=== PATIENT | male | born 1930 | race Caucasian/White ===

== ENCOUNTER → 2016-04-26 | Outpatient (REF) | payer MEDICARE, MEDICAID ==
[~2016-04-26] MED LIST: /TAMS4CA OR; ACET65TA OR; ALBU83IN IN; ARTI99.0 OU; ASPI325T OR; ASPI325T PO; Albuterol/Ipratropium NEB; BACL10TA2 OR; BACL10TA2 PO; CEFD300CAP PO; CETI10TA OR; CIPR500T4 OR; CLAR500T OR; Cipro PO; DULC5TAB PO; Dulcolax PO; ENSU-12 PO; FAMO1TAB11 PO; FLOM5CAP PO; GABA-283 PO; GABA300C3 PO; GABA600T PO; HYDR1TAB97 PO; IPRASOL4 NEB; LEVA750T PO; LEVO100T5 PO; MEGE20TA PO; MILKSUS PO; MIRA33504 PO; MYLASUS2 PO; Milk of Magnesia PO; NEUR300C OR; NEUR600T OR; NORC5TAB PO; OMEP10CASR PO; PATA2.5S OU; PATANOL OPTHALMIC OU; POTA10CA PO; PRIL20CA OR; RANI150C OR; REME15TA PO; REME30TA OR; SENO8.6T10 PO; SYNT100T OR; SYNT88TA2 PO; Senokot S PO; TAMS0.4C2 PO; TYLE325T5 PO; Tylenol PO; VENTOLIN NEB NEB; VITMTA PO; ZOCO10TA PO; ZYPR2.5T OR; ZYRT10TA2 PO; Zocor PO; [UNRECOGNIZED DRUG - OTHER] OU
== END ==
LOC: SKLAB4 09:00
PROVIDERS: ATTEND Family Medicine
DX: E03.9 Hypothyroidism, unspecified (principal)

== ENCOUNTER → 2016-05-17 | Outpatient (REF) | payer MEDICARE, MEDICAID ==
[~2016-05-17] MED LIST changes: +HYDR-3713 PO; -HYDR1TAB97 PO
[2016-05-17 09:36] LABS: CALCIUM LEVEL 8.3 MG/DL (8.8-10.2); CREATININE FOR GFR 1.25 MG/DL (0.70-1.30); GLOMERULAR FILTRATION RATE 58.7 (>35); POTASSIUM SERUM 4.1 MEQ/L (3.5-5.1)
== END ==
LOC: SKLAB4 09:58
PROVIDERS: ATTEND Family Medicine
DX: N18.9 Chronic kidney disease, unspecified (principal)

== ENCOUNTER → 2016-06-02 | Outpatient (REF) | payer MEDICARE, MEDICAID | LOC: SKLAB4 07:00 | PROVIDERS: ATTEND Family Medicine | DX: E03.9 Hypothyroidism, unspecified (principal); N48.1 Balanitis; Z12.5 Encounter for screening for malignant neoplasm of prostate; Z85.46 Personal history of malignant neoplasm of prostate; Z08 Encounter for follow-up examination after completed treatment for malignant neoplasm | CPT/HCPCS: 36415; 87252; G0103 ==

== ENCOUNTER → 2016-06-14 | Outpatient (REF) | payer MEDICARE, MEDICAID, OTHER ==
[2016-06-14 09:51] LABS: BASO % 0.3 % (0.0-1.0); EOS # 0.7 K/mm3 (0.0-0.50); EOS % 12.1 % (0.0-3.0); LARGE UNSTAINED CELL # 0.1 K/mm3 (0.0-0.4); LARGE UNSTAINED CELL % 1.3 % (0.0-4.0); LYMPH # 1.2 K/mm3 (1.5-4.5); MEAN CORPUSCULAR HGB CONC 33.8 g/dl (32.0-36.5); MEAN CORPUSCULAR VOLUME 97.7 fl (80.0-96.0); MONO # 0.3 K/mm3 (0.0-0.8); MONO % 5.7 % (0.0-5.0); NEUTROPHILS # 3.6 K/mm3 (1.8-7.7); NEUTROPHILS % 60.6 % (36.0-66.0); PLATELET COUNT, AUTOMATED 179 k/mm3 (150-450); RED CELL DISTRIBUTION WIDTH 13.8 % (11.5-14.5); WHITE BLOOD COUNT 5.9 K/mm3 (4.0-10.0)
[2016-06-14 10:02] LABS: CALCIUM LEVEL 8.8 MG/DL (8.8-10.2); CREATININE FOR GFR 1.29 MG/DL (0.70-1.30); GLOMERULAR FILTRATION RATE 56.6 (>35); POTASSIUM SERUM 3.7 MEQ/L (3.5-5.1)
== END ==
LOC: SKLAB4 09:14
PROVIDERS: ATTEND Family Medicine
DX: E03.9 Hypothyroidism, unspecified (principal); I10 Essential (primary) hypertension; D64.9 Anemia, unspecified

== ENCOUNTER → 2016-07-07 | Outpatient (REF) | payer MEDICARE, MEDICAID, OTHER | LOC: SKLAB4 21:43 | PROVIDERS: ATTEND Family Medicine | DX: R09.3 Abnormal sputum (principal) ==

== ENCOUNTER → 2016-07-12 | Outpatient (REF) | payer MEDICARE, MEDICAID, OTHER ==
[2016-07-12 08:49] LABS: ANION GAP 9 MEQ/L (8-16); BLOOD UREA NITROGEN 26 MG/DL (7-18); CALCIUM LEVEL 8.5 MG/DL (8.8-10.2); CARBON DIOXIDE LEVEL 24 MEQ/L (21-32); CHLORIDE LEVEL 109 MEQ/L (98-107); CREATININE FOR GFR 1.11 MG/DL (0.70-1.30); GLOMERULAR FILTRATION RATE > 60.0 (>35); GLUCOSE, FASTING 87 MG/DL (83-110); POTASSIUM SERUM 3.7 MEQ/L (3.5-5.1); SODIUM LEVEL 142 MEQ/L (136-145)
== END ==
LOC: SKLAB4 09:42
PROVIDERS: ATTEND Family Medicine
DX: I10 Essential (primary) hypertension (principal)

== ENCOUNTER → 2016-08-09 | Outpatient (REF) | payer MEDICARE, MEDICAID, OTHER ==
[~2016-08-09] MED LIST changes: +GABA-282 PO; -GABA300C3 PO; +MYLASUS16 PO; -MYLASUS2 PO; +NORC1TAB4 PO; -NORC5TAB PO
[2016-08-09 09:16] LABS: ANION GAP 10 MEQ/L (8-16); BLOOD UREA NITROGEN 26 MG/DL (7-18); CALCIUM LEVEL 8.8 MG/DL (8.8-10.2); CARBON DIOXIDE LEVEL 23 MEQ/L (21-32); CHLORIDE LEVEL 111 MEQ/L (98-107); CREATININE FOR GFR 1.12 MG/DL (0.70-1.30); GLOMERULAR FILTRATION RATE > 60.0 (>35); GLUCOSE, FASTING 126 MG/DL (83-110); POTASSIUM SERUM 3.7 MEQ/L (3.5-5.1); SODIUM LEVEL 144 MEQ/L (136-145)
== END ==
LOC: SKLAB4 10:25
PROVIDERS: ATTEND Family Medicine
DX: I10 Essential (primary) hypertension (principal)

== ENCOUNTER → 2016-09-06 | Outpatient (REF) | payer MEDICARE, MEDICAID, OTHER ==
[2016-09-06 08:51] LABS: ANION GAP 9 MEQ/L (8-16); BLOOD UREA NITROGEN 27 MG/DL (7-18); CALCIUM LEVEL 8.4 MG/DL (8.8-10.2); CARBON DIOXIDE LEVEL 24 MEQ/L (21-32); CHLORIDE LEVEL 108 MEQ/L (98-107); CREATININE FOR GFR 1.08 MG/DL (0.70-1.30); GLOMERULAR FILTRATION RATE > 60.0 (>35); GLUCOSE, FASTING 89 MG/DL (83-110); POTASSIUM SERUM 3.9 MEQ/L (3.5-5.1); SODIUM LEVEL 141 MEQ/L (136-145)
== END ==
LOC: SKLAB4 11:32
PROVIDERS: ATTEND Family Medicine
DX: Z86.73 Personal history of transient ischemic attack (TIA), and cerebral infarction without residual deficits (principal); Z87.01 Personal history of pneumonia (recurrent); E03.9 Hypothyroidism, unspecified; E78.5 Hyperlipidemia, unspecified; I10 Essential (primary) hypertension; J44.9 Chronic obstructive pulmonary disease, unspecified; K21.9 Gastro-esophageal reflux disease without esophagitis

== ENCOUNTER → 2016-09-15 | Outpatient (REF) | payer MEDICARE, MEDICAID, OTHER | LOC: SKLAB4 11:22 | PROVIDERS: ATTEND Family Medicine | DX: Z86.14 Personal history of Methicillin resistant Staphylococcus aureus infection (principal) ==

== ENCOUNTER → 2016-09-18 | Outpatient (REF) | payer MEDICARE, MEDICAID | LOC: M LAB REF 15:09 → SKLAB4 15:09 | PROVIDERS: ATTEND Family Medicine | DX: L08.9 Local infection of the skin and subcutaneous tissue, unspecified (principal) ==

== ENCOUNTER → 2016-09-20 | Outpatient (REF) | payer MEDICARE, MEDICAID | LOC: SKLAB4 15:34 | PROVIDERS: ATTEND Family Medicine | DX: Z22.322 Carrier or suspected carrier of Methicillin resistant Staphylococcus aureus (principal) ==

== ENCOUNTER → 2016-09-22 | Outpatient (REF) | payer MEDICARE, MEDICAID | LOC: SKLAB4 09:15 | PROVIDERS: ATTEND Family Medicine | DX: Z22.322 Carrier or suspected carrier of Methicillin resistant Staphylococcus aureus (principal) ==

== ENCOUNTER → 2016-10-01 | Outpatient (REF) | payer MEDICARE, MEDICAID ==
[2016-10-01 05:02] LABS: CALCIUM OXALATE CRYSTALS SMALL
== END ==
LOC: SKLAB4 03:42
PROVIDERS: ATTEND Family Medicine
DX: R30.0 Dysuria (principal)

== ENCOUNTER → 2016-10-11 | Outpatient (REF) | payer MEDICARE, MEDICAID ==
[2016-10-11 10:30] LABS: CREATININE FOR GFR 1.32 MG/DL (0.70-1.30); POTASSIUM SERUM 3.4 MEQ/L (3.5-5.1)
== END ==
LOC: SKLAB4 09:49
PROVIDERS: ATTEND Family Medicine
DX: I69.959 Hemiplegia and hemiparesis following unspecified cerebrovascular disease affecting unspecified side (principal); Z87.01 Personal history of pneumonia (recurrent)

== ENCOUNTER → 2016-11-07 | Outpatient (REF) | payer MEDICARE, MEDICAID ==
[~2016-11-07] MED LIST changes: +ASPI81TAEC PO; +CALC500T19 PO; +DICY1CAP8 PO; +DULO1CAP3 PO; +ENEM1ENE4 PR; +FEVE650S3 PR; +HYDR-3363 PO; +IPRASOL4 INH; +KLOR1CAP2 PO; +LACT10SO3 PO; -LEVA750T PO; +LEVA750T7 PO; +LEVO100T54 PO; -MEGE20TA PO; +MEGE20TA3 PO; +MINO100T PO; +OXYC-517 PO; +PEG1POW PO; +POTA20PW PO; +PRED20TA PO; +PRED5TA PO; +REFR0.5D8 OU
== END ==
LOC: SKLAB4 14:24
PROVIDERS: ATTEND Family Medicine
DX: S71.101A Unspecified open wound, right thigh, initial encounter (principal); X58.XXXA Exposure to other specified factors, initial encounter; Y92.89 Other specified places as the place of occurrence of the external cause; Y93.89 Activity, other specified; Y99.8 Other external cause status

== ENCOUNTER → 2016-11-08 | Outpatient (REF) | payer MEDICARE, MEDICAID ==
[2016-11-08 08:45] LABS: CALCIUM LEVEL 8.3 MG/DL (8.8-10.2); CREATININE FOR GFR 1.26 MG/DL (0.70-1.30); POTASSIUM SERUM 3.8 MEQ/L (3.5-5.1)
== END ==
LOC: SKLAB4 09:48
PROVIDERS: ATTEND Family Medicine
DX: I10 Essential (primary) hypertension (principal)

== ENCOUNTER → 2016-11-09 | Outpatient (REF) | payer MEDICARE, MEDICAID | LOC: SKLAB4 09:55 | PROVIDERS: ATTEND Family Medicine | DX: B86 Scabies (principal) ==

== ENCOUNTER → 2016-11-22 | Outpatient (REF) | payer MEDICARE, MEDICAID | LOC: SKLAB4 11:56 | PROVIDERS: ATTEND Family Medicine | DX: Z85.46 Personal history of malignant neoplasm of prostate (principal) ==

== ENCOUNTER → 2016-12-13 | Outpatient (REF) | payer MEDICARE, MEDICAID ==
[2016-12-13 09:01] LABS: BASO % 0.3 % (0.0-1.0); EOS # 0.2 K/mm3 (0.0-0.50); EOS % 2.7 % (0.0-3.0); LARGE UNSTAINED CELL # 0.1 K/mm3 (0.0-0.4); LARGE UNSTAINED CELL % 1.6 % (0.0-4.0); LYMPH # 1.1 K/mm3 (1.5-4.5); LYMPH % 13.1 % (24.0-44.0); MEAN CORPUSCULAR HEMOGLOBIN 29.6 pg (27.0-33.0); MEAN CORPUSCULAR HGB CONC 32.4 g/dl (32.0-36.5); MEAN CORPUSCULAR VOLUME 91.5 fl (80.0-96.0); MONO # 0.4 K/mm3 (0.0-0.8); MONO % 4.8 % (0.0-5.0); NEUTROPHILS # 6.6 K/mm3 (1.8-7.7); NEUTROPHILS % 77.5 % (36.0-66.0); PLATELET COUNT, AUTOMATED 255 k/mm3 (150-450); RED CELL DISTRIBUTION WIDTH 14.4 % (11.5-14.5); WHITE BLOOD COUNT 8.5 K/mm3 (4.0-10.0)
[2016-12-13 09:35] LABS: ANION GAP 11 MEQ/L (8-16); BLOOD UREA NITROGEN 35 MG/DL (7-18); CALCIUM LEVEL 8.2 MG/DL (8.8-10.2); CARBON DIOXIDE LEVEL 25 MEQ/L (21-32); CHLORIDE LEVEL 104 MEQ/L (98-107); CREATININE FOR GFR 1.08 MG/DL (0.70-1.30); GLOMERULAR FILTRATION RATE > 60.0 (>35); GLUCOSE, FASTING 74 MG/DL (83-110); SODIUM LEVEL 140 MEQ/L (136-145)
== END ==
LOC: SKLAB4 09:40
PROVIDERS: ATTEND Family Medicine
DX: J44.9 Chronic obstructive pulmonary disease, unspecified (principal); E78.5 Hyperlipidemia, unspecified; E03.9 Hypothyroidism, unspecified; Z85.46 Personal history of malignant neoplasm of prostate; R97.21 Rising PSA following treatment for malignant neoplasm of prostate

== ENCOUNTER 2016-12-26 03:17 | Inpatient (IN) | payer MEDICARE, MEDICAID ==
[~2016-12-26] VITALS: Ht 167.6 cm; Wt 90.0 kg
[~2016-12-26 03:17] MED LIST changes: -ASPI81TAEC PO; -CALC500T19 PO; -DICY1CAP8 PO; -DULO1CAP3 PO; -ENEM1ENE4 PR; -FEVE650S3 PR; -HYDR-3363 PO; -IPRASOL4 INH; -KLOR1CAP2 PO; -LACT10SO3 PO; -LEVO100T54 PO; -MINO100T PO; -OXYC-517 PO; -PEG1POW PO; -POTA20PW PO; -PRED20TA PO; -PRED5TA PO; -REFR0.5D8 OU
[2016-12-26 04:59] LABS: BASO % 0.3 % (0.0-1.0); EOS # 0.1 K/mm3 (0.0-0.50); EOS % 0.7 % (0.0-3.0); LARGE UNSTAINED CELL # 0.1 K/mm3 (0.0-0.4); LARGE UNSTAINED CELL % 0.7 % (0.0-4.0); LYMPH # 1.1 K/mm3 (1.5-4.5); MEAN CORPUSCULAR HGB CONC 33.4 g/dl (32.0-36.5); MEAN CORPUSCULAR VOLUME 89.9 fl (80.0-96.0); MONO # 0.7 K/mm3 (0.0-0.8); MONO % 6.6 % (0.0-5.0); NEUTROPHILS # 8.4 K/mm3 (1.8-7.7); NEUTROPHILS % 81.7 % (36.0-66.0); PLATELET COUNT, AUTOMATED 232 k/mm3 (150-450); RED CELL DISTRIBUTION WIDTH 15.3 % (11.5-14.5); WHITE BLOOD COUNT 10.3 K/mm3 (4.0-10.0)
[2016-12-26 06:23] LABS: ALBUMIN 1.6 GM/DL (3.2-5.2); ALBUMIN/GLOBULIN RATIO 0.64 (1.00-1.93); ALKALINE PHOSPHATASE 55 U/L (45-117); ALT/SGPT 18 U/L (12-78); ANION GAP 12 MEQ/L (8-16); AST/SGOT 19 U/L (15-37); BILIRUBIN,DIRECT < 0.1 MG/DL (0.0-0.2); BILIRUBIN,TOTAL 0.3 MG/DL (0.2-1.0); BLOOD UREA NITROGEN 35 MG/DL (7-18); CALCIUM LEVEL 5.8 MG/DL (8.8-10.2); CARBON DIOXIDE LEVEL 15 MEQ/L (21-32); CHLORIDE LEVEL 124 MEQ/L (98-107); CREATININE FOR GFR 0.61 MG/DL (0.70-1.30); GLOMERULAR FILTRATION RATE > 60.0 (>35); GLUCOSE, FASTING 86 MG/DL (83-110); POTASSIUM SERUM 3.4 MEQ/L (3.5-5.1); SODIUM LEVEL 151 MEQ/L (136-145); TOTAL PROTEIN 4.1 GM/DL (6.4-8.2)
[2016-12-26] MEDS ORDERED: ONDANSETRON 4MG/2ML VIAL (J2405) IV ONE (06:30)
[2016-12-26] MEDS ORDERED: NS 1,000 ML IV ONE (06:30)
[2016-12-26] MEDS ORDERED: ISOVUE-370 76% 100ML VIAL (Q9967) As Ordered ONE (06:33)
--- NOTE | 2016-12-26 07:30 | REPUSA ---
CLINICAL HISTORY: Abdominal pain. TECHNIQUE: Multiple axial, sagittal and coronal CT images were obtained through the abdomen and pelvi s after administration of intravenous contrast material. COMMENTS: Moderate fecal impaction of the rectosigmoid colon. Moderate gaseous distention of the colon which contains large amount of fecal residue. The largest anteroposterior dimension of the distended sigmoid colon is 15.3 cm. No associated bowel perforation or pneumatosis coli. No evidence of abscess formation. Small amount of perihepatic free fluid. Interposition of the colon between the liver and the right hemidiaphragm. Secondary extrinsic compression of the distal right ureter from a distended sigmoid containing massiv e amount of fecal residue. Subsequent moderate right hydroureteronephrosis. Moderate chronic left renal atrophy with nonobstructing nephrolithiasis. Prior prostatectomy. Fatty liver infiltration. Cholelithiasis with a distended gallbladder. Incidental left lower lobe segmental branches pulmonary emboli. Cardiomegaly. Bilateral basilar atelectatic pulmonary changes. There is no intra or extrahepatic biliary ductal dilatation. The spleen is normal. The pancreas is of normal contour and attenuation characteristics. There is no evidence of adrenal mass. No evidence for appendicitis. There is no evidence of intrinsic or extrinsic bladder mass. The bony structures are free of lytic or blastic lesions. Multilevel degenerative changes are seen in volving the thoracolumbar spine. Scattered calcifications are seen involving the aorta and major branches compatible with atherosclero sis. IMPRESSION: Comparison to the prior exam on 04/10/2014. Moderate fecal impaction of the rectosigmoid colon. This was not present on prior exam. Moderate gaseous distention of the colon which contains large amount of fecal residue. This was not p resent on prior exam. The largest anteroposterior dimension of the distended sigmoid colon is 15.3 cm. this was not present on the prior exam. No associated bowel perforation or pneumatosis coli. No evidence of abscess formation. Small amount of perihepatic free fluid. This was not present on prior exam. Interposition of the colon between the liver and the right hemidiaphragm. Secondary extrinsic compression of the distal right ureter from a distended sigmoid containing massiv e amount of fecal residue. Subsequent moderate right hydroureteronephrosis. Moderate chronic left renal atrophy with nonobstructing nephrolithiasis. Prior prostatectomy. Fatty liver infiltration. This is unchanged. Cholelithiasis with a distended gallbladder. This is unchanged. Incidental left lower lobe segmental branches pulmonary emboli. Prior exam was performed without intr avenous contrast. Cardiomegaly. This is unchanged. Bilateral basilar atelectatic pulmonary changes. This has increased. Thank you for your kind referral of this patient.
[2016-12-26] MEDS ORDERED: NS 1,000 ML IV SCH (07:45)
[2016-12-26 08:11] LABS: IONIZED CALCIUM 4.8 MG/DL (4.5-5.3)
[2016-12-26 08:30] LABS: MAGNESIUM LEVEL 2.7 MG/DL (1.8-2.4); PHOSPHORUS LEVEL 3.2 MG/DL (2.5-4.9)
--- NOTE | 2016-12-26 08:44 | REP ---
Clinical: Left lower extremity pain and swelling . Technique: Estrada scale and color Doppler evaluation using linear high frequency transducer. Findings: Subcutaneous edema is appreciated primarily in the posterior knee. Ultrasound examination of the left lower extremity deep venous structures from the common femoral vein to the popliteal vein demonstrates normal compressibility flow and wave patterns in response to respiration and augmentation. There is no evidence for deep venous thrombosis. Impression: No evidence for deep venous thrombosis. Signed by Daron Aranda MD 12/26/2016 08:35 A
[2016-12-26] MEDS: DULoxetine 30 MG CAP (CYMBALTA) PO SCH ×2 (09:00→14:20)
[2016-12-26] MEDS: BACLOFEN 10 MG TAB PO SCH ×4 (09:00→22:23)
[2016-12-26] MEDS: MULTIVITAMINS/MINERALS THERAP 1 TAB PO SCH ×2 (09:00→14:22)
[2016-12-26] MEDS: MIRALAX *UNIT DOSE* 17GM PACKET PO SCH ×2 (09:00→14:22)
[2016-12-26] MEDS ORDERED: CALC500T19 PO (09:58)
[2016-12-26] MEDS ORDERED: PRED5TA PO (09:58)
[2016-12-26] MEDS ORDERED: PRED20TA PO (09:58)
[2016-12-26] MEDS ORDERED: BISACODYL 10 MG SUPP PR PRN (10:15)
[2016-12-26] MEDS ORDERED: FLEET ENEMA PR PRN (10:15)
[2016-12-26] MEDS ORDERED: IPRATROPIUM 0.5MG/ALBUTEROL 2.5MG INH SOL UD 3ML (DUONEB)(J7620) INH PRN (10:15)
[2016-12-26] MEDS ORDERED: FEVE650S3 PR (10:18)
[2016-12-26] MEDS ORDERED: REFR0.5D8 OU (10:18)
[2016-12-26] MEDS ORDERED: ASPI81TAEC PO (10:18)
[2016-12-26] MEDS ORDERED: LEVO100T54 PO (10:18)
[2016-12-26] MEDS ORDERED: FLOM5CAP PO (10:18)
[2016-12-26] MEDS ORDERED: TYLE325T5 PO (10:18)
[2016-12-26] MEDS ORDERED: MINO100T PO (10:18)
[2016-12-26] MEDS ORDERED: OXYC-517 PO (10:18)
[2016-12-26] MEDS ORDERED: ENEM1ENE4 PR (10:18)
[2016-12-26] MEDS ORDERED: HYDR-3363 PO (10:18)
[2016-12-26] MEDS ORDERED: DULO1CAP3 PO (10:18)
[2016-12-26] MEDS ORDERED: KLOR1CAP2 PO (10:18)
[2016-12-26] MEDS ORDERED: MILKSUS PO (10:18)
[2016-12-26] MEDS ORDERED: IPRASOL4 INH (10:18)
[2016-12-26] MEDS: NS 1,000 ML IV SCH ×2 (11:00→14:09)
[2016-12-26 11:46] VITALS: BP 134/75
[2016-12-26] MEDS ORDERED: MAGNESIUM CITRATE 300 ML BTL PO ONE (12:00)
[2016-12-26 14:00] VITALS: BP 169/95
[2016-12-26] MEDS: hydrOXYzine 25 MG TAB PO SCH ×4 (14:00→22:23)
[2016-12-26] MEDS: oxyCODONE 5MG TAB PO PRN ×3 (14:07→15:26)
[2016-12-26] MEDS: ACETAMINOPHEN TAB 650MG DOSE (2X325MG) PO PRN ×4 (14:08→22:22)
[2016-12-26] MEDS: predniSONE 5 MG TAB PO SCH ×2 (14:21→15:28)
[2016-12-26] MEDS: APIXABAN 5 MG TAB (ELIQUIS) PO SCH ×3 (14:21→22:21)
--- NOTE | 2016-12-26 19:50 | ECGEPIP ---
Stationary ECG Study [facility] - ED Test Date: 2016-12-26 Pat Name: CHASE HAWLEY Department: Room: - Gender: M Vp Analysis: pushpa : [id number] Requested By: ARMIDA VERDIN PA-C. Order Number: [id number] Reading MD: Kermit Ribera Measurements Intervals [place]de Rate: 96 P: 44 AL: 138 QRS: 78 QRSD: 133 T: 0 QT: 376 QTc: 476 Interpretive Statements SINUS RHYTHM RIGHT BUNDLE BRANCH BLOCK RIGHTWARD AXIS CW 08/22/15 - NEW RBBB RATE INCREASED Electronically Signed On 12-26-2016 19:49:48 EDT by Kermit Ribera
[2016-12-26] MEDS ORDERED: MIRTAZAPINE 15 MG TAB PO SCH (21:00)
[2016-12-26 22:00] VITALS: BP 167/95
[2016-12-26] MEDS: POTASSIUM CHLORIDE 10% LIQ 20 MEQ/15 ML UDC PO SCH (22:20)
[2016-12-26] MEDS: ASPIRIN 81 MG ENTERIC TAB PO SCH (22:22)
[2016-12-26] MEDS: SENOKOT S TAB PO SCH (22:22)
[2016-12-26] MEDS: LEVOTHYROXINE 100MCG TABLET (0.1MG) PO SCH (22:22)
[2016-12-26] MEDS: TAMSULOSIN 0.4 MG CAP PO SCH (22:22)
[2016-12-26] MEDS: FAMOTIDINE 20 MG TAB PO SCH (22:23)
[2016-12-26] MEDS: MINOCYCLINE 50 MG CAP PO SCH (22:23)
[2016-12-27] MEDS: ONDANSETRON 4MG/2ML VIAL (J2405) IV PRN (03:21)
[2016-12-27 06:00] VITALS: BP 158/86
[2016-12-27] MEDS: hydrOXYzine 25 MG TAB PO SCH ×3 (06:35→22:03)
[2016-12-27 07:11] LABS: BASO % 0.1 % (0.0-1.0); EOS % 0.1 % (0.0-3.0); LARGE UNSTAINED CELL # 0.1 K/mm3 (0.0-0.4); LARGE UNSTAINED CELL % 0.9 % (0.0-4.0); LYMPH # 0.8 K/mm3 (1.5-4.5); LYMPH % 7.9 % (24.0-44.0); MEAN CORPUSCULAR HEMOGLOBIN 29.7 pg (27.0-33.0); MEAN CORPUSCULAR HGB CONC 32.8 g/dl (32.0-36.5); MEAN CORPUSCULAR VOLUME 90.6 fl (80.0-96.0); MONO # 0.4 K/mm3 (0.0-0.8); MONO % 4.6 % (0.0-5.0); NEUTROPHILS # 7.3 K/mm3 (1.8-7.7); NEUTROPHILS % 86.3 % (36.0-66.0); PLATELET COUNT, AUTOMATED 274 k/mm3 (150-450); RED CELL DISTRIBUTION WIDTH 15.4 % (11.5-14.5); WHITE BLOOD COUNT 8.5 K/mm3 (4.0-10.0)
[2016-12-27 07:14] LABS: ALBUMIN 2.4 GM/DL (3.2-5.2); ALBUMIN/GLOBULIN RATIO 0.53 (1.00-1.93); ALKALINE PHOSPHATASE 90 U/L (45-117); ALT/SGPT 25 U/L (12-78); ANION GAP 11 MEQ/L (8-16); AST/SGOT 11 U/L (15-37); BILIRUBIN,TOTAL 0.6 MG/DL (0.2-1.0); BLOOD UREA NITROGEN 42 MG/DL (7-18); CALCIUM LEVEL 8.8 MG/DL (8.8-10.2); CARBON DIOXIDE LEVEL 22 MEQ/L (21-32); CHLORIDE LEVEL 112 MEQ/L (98-107); CREATININE FOR GFR 1.04 MG/DL (0.70-1.30); GLUCOSE, FASTING 119 MG/DL (83-110); MAGNESIUM LEVEL 2.8 MG/DL (1.8-2.4); SODIUM LEVEL 145 MEQ/L (136-145); TOTAL PROTEIN 6.9 GM/DL (6.4-8.2)
[2016-12-27 07:15] LABS: GLOMERULAR FILTRATION RATE > 60.0 (>35)
[2016-12-27] MEDS: MIRALAX *UNIT DOSE* 17GM PACKET PO SCH (09:00)
[2016-12-27] MEDS ORDERED: predniSONE 20 MG TAB PO SCH (09:00)
[2016-12-27] MEDS: PROMETHAZINE INJ 25 MG/ML VIAL (J2550) IV PRN (10:38)
--- NOTE | 2016-12-27 10:45 | IPNPDOC ---
Subjective Date Seen The patient was seen on 12/27/16. Subjective Chief Complaint/HPI The patient is a 86-year-old male admitted with a reason for visit of Pulmonary Embolism Fecal Impaction. General: Reports: ROS Unobtainable Objective Physical Examination General Exam: Positive: Moderate Distress Neck Exam: Positive: Supple Chest Exam: Positive: Clear to auscultation, Normal air movement, Negative: Rales, Rhonchi Heart Exam: Positive: Regular Rhythm Abdomen Exam: Positive: BS Hypoactive, Other (Distended, tender especially LLQ. No rebound but tympanitic) Skin Exam: Positive: Other skin issue (healing wounds multiple locations. no bullae seen today. 2+ edema bilaterally.) Neuro Exam: Positive: Other (confused, no fully able to follow directions. moves right side) Assessment /Plan Problems (1) Fecal impaction Status: Acute Response to Treatment: Worse Problem Specific Plan: Consult Specialist Problem Text: distended, tender, emesis this am. likely needs NG. KUB shows still has large amount of rectal stool and distended colon. (2) Pulmonary embolism Status: Acute Response to Treatment: Stable Problem Text: PO Eliquis stopped due to emesis. Will need Lovenox or IV heparin to manage but at this point will hold on these until surgical consult. (3) Bullous pemphigoid Status: Chronic Response to Treatment: Stable Problem Text: has seen Derm [employer] SOFTWARE [employer]INE[employer]. No blisters seen today. This skin condition can be an acquired side effect from mirtazapine. Currently NPO will need IV steroids until able to be taking po again. (4) H/O: CVA (cerebrovascular accident) Status: Chronic Response to Treatment: Stable Problem Text: affected left side Plan/VTE VTE Prophylaxis Ordered?: Yes VS, I&O, 24H, Fishbone Vital Signs/I&O Vital Signs Date Time Temp Pulse Resp B/P (MAP) Pulse Ox O2 Delivery O2 Flow Rate FiO2 12/27/16 06:00 97.9 93 20 158/86 (110) 92 Room Air I&O- Last 24 Hours up to 6 AM 12/27/16 05:59 Intake Total 1125 ml Output Total 50 ml Balance 1075 ml Laboratory Data 24H LABS Laboratory Tests 2 12/27/16 06:34: White Blood Count 8.5, Red Blood Count 4.71, Hemoglobin 14.0, Hematocrit 42.6, Mean Corpuscular Volume 90.6, Mean Corpuscular Hemoglobin 29.7, Mean Corpuscular Hemoglobin Concent 32.8, Red Cell Distribution Width 15.4H, Platelet Count 274, Neutrophils (%) (Auto) 86.3H, Lymphocytes (%) (Auto) 7.9L, Monocytes (%) (Auto) 4.6, Eosinophils (%) (Auto) 0.1, Basophils (%) (Auto) 0.1, Neutrophils # (Auto) 7.3, Lymphocytes # (Auto) 0.8L, Monocytes # (Auto) 0.4, Eosinophils # (Auto) 0.0, Basophils # (Auto) 0.0, Large Unclassified Cells % 0.9 , Large Unclassified Cells # 0.1, Anion Gap 11, Glomerular Filtration Rate > 60.0, Blood Urea Nitrogen 42H, Creatinine 1.04#, Sodium Level 145, Potassium Level 4.0, Chloride Level 112H, Carbon Dioxide Level 22, Calcium Level 8.8#, Aspartate Amino Transf (AST/SGOT) 11L, Alanine Aminotransferase (ALT/SGPT) 25, Alkaline Phosphatase 90, Total Bilirubin 0.6#, Total Protein 6.9#, Albumin 2.4#L , Magnesium Level 2.8H, Albumin/Globulin Ratio 0.53L CBC/BMP Laboratory Tests 12/27/16 06:34 Red Blood Count 4.71, Mean Corpuscular Volume 90.6, Mean Corpuscular Hemoglobin 29.7, Mean Corpuscular Hemoglobin Concent 32.8, Red Cell Distribution Width 15.4 H, Neutrophils (%) (Auto) 86.3 H, Lymphocytes (%) (Auto) 7.9 L, Monocytes ( %) (Auto) 4.6, Eosinophils (%) (Auto) 0.1, Basophils (%) (Auto) 0.1, Neutrophils # (Auto) 7.3, Lymphocytes # (Auto) 0.8 L, Monocytes # (Auto) 0.4, Eosinophils # (Auto) 0.0, Basophils # (Auto) 0.0, Calcium Level 8.8 #, Aspartate Amino Transf (AST/SGOT) 11 L, Alanine Aminotransferase (ALT/SGPT) 25, Alkaline Phosphatase 90, Total Bilirubin 0.6 #, Total Protein 6.9 #, Albumin 2.4 #L Shahid Brothers MD Dec 27, 2016 10:24
--- NOTE | 2016-12-27 10:56 | REP ---
Clinical: Nausea and distension. Technique: Portable supine views of the abdomen and pelvis. Findings: Marked distension throughout the small large bowel is appreciated along with fecal stasis and possible fecal impaction at the rectum. Impression: Marked distension with fecal stasis and possible rectal impaction. Signed by Daron Aranda MD 12/27/2016 10:48 A
[2016-12-27] MEDS: HYDROCORTISONE 100 MG/2 ML VIAL (J1720) IV SCH (11:58)
[2016-12-27] MEDS: PANTOPRAZOLE 40MG INJ (PROTONIX) (C9113) IV SCH (11:59)
[2016-12-27] MEDS: oxyCODONE 5MG TAB PO PRN (12:00)
[2016-12-27] MEDS: APIXABAN 5 MG TAB (ELIQUIS) PO SCH ×2 (12:03→22:03)
[2016-12-27] MEDS: DULoxetine 30 MG CAP (CYMBALTA) PO SCH (12:03)
[2016-12-27] MEDS: NS 1,000 ML IV SCH (12:03)
[2016-12-27] MEDS: SENOKOT S TAB PO SCH ×2 (12:03→22:03)
[2016-12-27] MEDS: CALCIUM/VITAMIN D 500 MG TAB PO SCH (12:03)
[2016-12-27] MEDS: MINOCYCLINE 50 MG CAP PO SCH ×2 (12:04→22:03)
[2016-12-27] MEDS: BACLOFEN 10 MG TAB PO SCH ×2 (12:04→21:00)
[2016-12-27] MEDS: MULTIVITAMINS/MINERALS THERAP 1 TAB PO SCH (12:04)
[2016-12-27 14:00] VITALS: BP 139/93
[2016-12-27] MEDS ORDERED: MAGNESIUM CITRATE 300 ML BTL NG ONE (18:15)
[2016-12-27 22:00] VITALS: BP 172/84
[2016-12-27] MEDS: POTASSIUM CHLORIDE 10% LIQ 20 MEQ/15 ML UDC PO SCH (22:02)
[2016-12-27] MEDS: ASPIRIN 81 MG ENTERIC TAB PO SCH (22:02)
[2016-12-27] MEDS: LEVOTHYROXINE 100MCG TABLET (0.1MG) PO SCH (22:02)
[2016-12-27] MEDS: TAMSULOSIN 0.4 MG CAP PO SCH (22:03)
[2016-12-27] MEDS: FAMOTIDINE 20 MG TAB PO SCH (22:04)
[2016-12-27] MEDS: ACETAMINOPHEN TAB 650MG DOSE (2X325MG) PO PRN (22:13)
[2016-12-28] MEDS: NS 1,000 ML IV SCH ×2 (05:28→16:33)
[2016-12-28] MEDS: hydrOXYzine 25 MG TAB PO SCH ×3 (05:28→22:44)
[2016-12-28 06:00] VITALS: BP 142/76
[2016-12-28 07:50] LABS: MEAN CORPUSCULAR HEMOGLOBIN 30.4 pg (27.0-33.0); MEAN CORPUSCULAR HGB CONC 33.5 g/dl (32.0-36.5); MEAN CORPUSCULAR VOLUME 90.7 fl (80.0-96.0); RED CELL DISTRIBUTION WIDTH 15.1 % (11.5-14.5); WHITE BLOOD COUNT 7.9 K/mm3 (4.0-10.0)
[2016-12-28 07:52] LABS: ANION GAP 9 MEQ/L (8-16); BLOOD UREA NITROGEN 42 MG/DL (7-18); CALCIUM LEVEL 8.8 MG/DL (8.8-10.2); CARBON DIOXIDE LEVEL 24 MEQ/L (21-32); CHLORIDE LEVEL 114 MEQ/L (98-107); CREATININE FOR GFR 1.21 MG/DL (0.70-1.30); GLOMERULAR FILTRATION RATE > 60.0 (>35); GLUCOSE, FASTING 101 MG/DL (83-110); POTASSIUM SERUM 3.6 MEQ/L (3.5-5.1); SODIUM LEVEL 147 MEQ/L (136-145)
[2016-12-28] MEDS: BISACODYL 10 MG SUPP PR PRN ×4 (08:54→18:16)
[2016-12-28] MEDS: FLEET ENEMA PR PRN ×4 (08:55→18:16)
[2016-12-28] MEDS: HYDROCORTISONE 100 MG/2 ML VIAL (J1720) IV SCH (08:55)
[2016-12-28] MEDS: MIRALAX *UNIT DOSE* 17GM PACKET PO SCH (08:55)
[2016-12-28] MEDS: PANTOPRAZOLE 40MG INJ (PROTONIX) (C9113) IV SCH (08:55)
[2016-12-28] MEDS: BACLOFEN 10 MG TAB PO SCH ×2 (08:55→22:44)
[2016-12-28] MEDS: APIXABAN 5 MG TAB (ELIQUIS) PO SCH ×2 (08:57→22:44)
[2016-12-28] MEDS: SENOKOT S TAB PO SCH ×2 (08:57→22:44)
[2016-12-28] MEDS: MINOCYCLINE 50 MG CAP PO SCH ×2 (08:57→22:45)
[2016-12-28] MEDS: CALCIUM/VITAMIN D 500 MG TAB PO SCH (08:57)
[2016-12-28] MEDS: MULTIVITAMINS/MINERALS THERAP 1 TAB PO SCH (08:57)
[2016-12-28] MEDS: DULoxetine 30 MG CAP (CYMBALTA) PO SCH (08:57)
--- NOTE | 2016-12-28 11:14 | REP ---
Clinical: Chest pain. Technique: AP and cross-table lateral views. Comparison: 09/08/2015. Findings: Pneumoperitoneum with free air below the right hemidiaphragm versus interposition of the colon as suggested by prior CT cannot be excluded and requires correlation. Distended air-filled loops of bowel are identified below the diaphragm. The lung thompson demonstrate bibasilar atelectasis and lateral view suggest the possibility of layering effusion. No pneumothorax. The cardiac silhouette is normal. A nasogastric tube is identified with its tip below the left hemidiaphragm. Skeletal structures demonstrate age-related degenerative changes. Impression: 1. Free air below the diaphragm versus interposition of colon cannot be excluded and requires correlation. 2. Continued evidence for distended air-filled bowel that 3. Bibasilar atelectasis and possible layering effusion. Signed by Daron Aranda MD 12/28/2016 11:05 A
--- NOTE | 2016-12-28 11:59 | REP ---
VENTILATION-PERFUSION LUNG SCAN: 12/28/2016. CLINICAL HISTORY: Pulmonary embolism of unspecified severity suspected. TECHNIQUE: Only six projections could be obtained as the patient is unable to elevate the arms over his head and therefore no lateral projections used. This will limit the sensitivity of the examination. The six views in ventilation and perfusion followed administration of 1 mCi technetium 99m DTPA aerosol for ventilation followed by 5.4 mCi technetium 99m MAA via an IV. COMPARISON: Chest x-ray this date. The elevated diaphragm on the right with colonic interposition noted. FINDINGS: There are multiple matched ventilation-perfusion defects with the anterior and posterior perfusion images conforming to the general shape of the lungs on radiograph at this time. There are no significant ventilation perfusion mismatches. On all images the ventilation defect is larger than the perfusion defect. The effect of the elevated right diaphragm is noted. There is tracer deposition in both lungs during the ventilation imaging in the perihilar regions related to his known COPD. IMPRESSION: 1. Using the revised PIOPED lung scan interpretation criteria, this study is low probability for pulmonary thromboembolism. Signed by Nixon Gomes MD 12/28/2016 11:51 A
--- NOTE | 2016-12-28 13:21 | IPNPDOC ---
Subjective Date Seen The patient was seen on 12/28/16. Subjective Chief Complaint/HPI The patient is a 86-year-old male admitted with a reason for visit of Pulmonary Embolism Fecal Impaction. Events since last encounter Unfortunately he has not been having great success with the enemas he's had thus far. He also had to have a NG tube placed for persistent nausea after some oral intake. He isn't very pleased with this. He also isn't feeling that nauseated any more (after some decompression). He is requesting I consider removing this. General: Denies: Normal Appetite Constitutional: Denies: Chills, Fever Pulmonary: Denies: Cough Cardiovascular: Denies: Chest Pain Gastrointestinal: Reports: Nausea, Abdominal Pain Objective Physical Examination General Exam: Positive: Alert, Mild Distress Eye Exam: Positive: Conjunctiva & lids normal, Sclera icteric Neck Exam: Positive: Supple, Negative: Lymphadenopathy Chest Exam: Positive: Clear to auscultation, Normal air movement, Negative: Rales, Rhonchi Heart Exam: Positive: Regular Rhythm Abdomen Exam: Positive: BS Hypoactive, Other (Distended, tender. Tympanitic) Extremity Exam: Positive: Edema (the left leg has 2-3 mm of pitting edema in the anterior tibial area) Skin Exam: Positive: Other skin issue (healing wounds multiple locations. no bullae seen today. 2+ edema bilaterally.) Neuro Exam: Positive: Normal Speech, Other (confused but his cognition clears after several seconds of talking to him, left-sided deficits) Assessment /Plan Problems (1) Fecal impaction Status: Acute Response to Treatment: Worse Problem Specific Plan: Consult Specialist Problem Text: Dr. Smallwood has seen him and his changed his regimen to include enemas up to 6 times a day. With the hope of clearing or at least softening some of the impacted stool. Appreciate his assistance. (2) Pulmonary embolism Status: Acute Response to Treatment: Stable Problem Text: Anticoagulation is on hold because of the uncertainty regarding necessity of a surgical procedure. We need to watch his breathing symptoms very carefully. A VQ scan was ordered to try to further quantify the extent of his PE. (3) Bullous pemphigoid Status: Chronic Response to Treatment: Stable Problem Text: His lesions are symptomatically stable. Will follow carefully and hopefully they will not flare further during this admission. (4) H/O: CVA (cerebrovascular accident) Status: Chronic Response to Treatment: Stable Problem Text: He has residual deficits on the left side. He has edema particularly in his leg related to this. Plan/VTE VTE Prophylaxis Ordered?: Yes (SCDs and TEDs) VTE Exclusion Pharmacological: Other (ongoing considerations of surgical procedure) VS, I&O, 24H, Fishbone Vital Signs/I&O Vital Signs Date Time Temp Pulse Resp B/P (MAP) Pulse Ox O2 Delivery O2 Flow Rate FiO2 12/28/16 09:48 Room Air 12/28/16 06:00 97.9 99 20 142/76 (98) 96 I&O- Last 24 Hours up to 6 AM 12/28/16 05:59 Intake Total 720 ml Output Total 1100 ml Balance -380 ml Laboratory Data 24H LABS Laboratory Tests 2 12/28/16 07:03: Anion Gap 9, Glomerular Filtration Rate > 60.0, Blood Urea Nitrogen 42H, Creatinine 1.21, Sodium Level 147H, Potassium Level 3.6, Chloride Level 114H, Carbon Dioxide Level 24, Calcium Level 8.8, Magnesium Level 3.0H CBC/BMP Laboratory Tests 12/28/16 07:03 Red Blood Count 4.66, Mean Corpuscular Volume 90.7, Mean Corpuscular Hemoglobin 30.4, Mean Corpuscular Hemoglobin Concent 33.5, Red Cell Distribution Width 15.1 H, Calcium Level 8.8 Nehemias Briones MD Dec 28, 2016 1:21 pm
[2016-12-28 14:00] VITALS: BP 124/77
--- NOTE | 2016-12-28 15:35 | CR ---
DATE OF CONSULTATION: 12/27/2016 REASON FOR CONSULTATION: Fecal impaction. HISTORY OF PRESENT ILLNESS: The patient is an 86-year-old male patient of Dr. Ferguson who presents [facility] the emergency room from [facility] and secondary to abdominal distention, left-sided abdominal pain and left lower extremity swelling. He was brought in from [facility]. In the ER he had a CT showing fecal impaction as well as possible lower lobe PEs and because of that he was admitted to the hospital. He has been placed on enemas and given some laxatives but he is having increased abdominal distension, nausea, vomiting so I was asked to evaluate. Currently he denies pain but he has significant pain when his abdomen is pressed. He does have abdominal distension. He claims that he is having small bowel movements but the nurses say that he has not had very much out. He is difficult to obtain a good history from, so I am unable to determine if he has had difficulty with constipation in the past. He has had previous stroke and currently is being treated for that with expressive aphasia. PAST MEDICAL HISTORY: CVA with left-sided weakness, COPD, hypertension, hyperlipidemia, hypothyroidism, gastroesophageal reflux disease, chronic eczematous dermatitis, history of prostate cancer status post radical prostatectomy. PAST SURGICAL HISTORY: Fracture repair, radical prostatectomy, dental extractions. FAMILY HISTORY: Noncontributory. ALLERGIES: PENICILLIN, PROCAINE, SULFACETAMIDE and MACROBID. SOCIAL HISTORY: Denies drug, alcohol, or tobacco usage. REVIEW OF SYSTEMS: Difficulty to obtain but he does deny pain. No nausea or vomiting but he does have abdominal distension. The rest of review of systems is going to be obtained from the [facility]. PHYSICAL EXAMINATION: General: Patient is awake and alert. Vital signs: Temperature 97.6, pulse 92, respirations 20, blood pressure 139/93, pulse oximetry 97% on room air. HEENT: Pupils equal, round and reactive to light and accommodation. Heart: S1, S2, regular rate and rhythm. Lungs: Clear to auscultation bilaterally. Abdomen: Soft, very distended, tender to palpation diffusely. No rebounding or guarding. Extremities: No clubbing or cyanosis. LABORATORY DATA: White count 8.5, hemoglobin 14, platelets 274, potassium 4, creatinine 1.04, fasting glucose 119, magnesium 2.8. IMAGING STUDIES: CT abdomen and pelvis showed moderate fecal impaction of the rectal sigmoid colon with the largest AP dimension in the sigmoid colon measuring up to 15.3 cm. No associated perforation or pneumatosis coli and no evidence of abscess formation. There is a small amount of perihepatic free fluid that is new from previous exam. Cholelithiasis with a distended gallbladder that is unchanged from previous exam. ASSESSMENT/PLAN: The patient is an 86-year-old male with abdominal distension and a fecal impaction along with a dilated colon. Recommendation at this time is NG tube placement with decompression. We will hold off on laxatives from above and continue with enemas. We will increase the enemas to six times a day along with Dulcolax suppositories to try and soften up this large stool retention to increase the chance of removal and, after he has had a chance for this to soften for 24 hours, we will attempt a rectal exam and decompression.
[2016-12-28] MEDS: ACETAMINOPHEN TAB 650MG DOSE (2X325MG) PO PRN (18:16)
[2016-12-28 22:00] VITALS: BP 142/77
[2016-12-28] MEDS: LEVOTHYROXINE 100MCG TABLET (0.1MG) PO SCH (22:43)
[2016-12-28] MEDS: POTASSIUM CHLORIDE 10% LIQ 20 MEQ/15 ML UDC PO SCH (22:43)
[2016-12-28] MEDS: TAMSULOSIN 0.4 MG CAP PO SCH (22:44)
[2016-12-28] MEDS: ASPIRIN 81 MG ENTERIC TAB PO SCH (22:44)
[2016-12-28] MEDS: FAMOTIDINE 20 MG TAB PO SCH (22:45)
[2016-12-29] MEDS: NS 1,000 ML IV SCH (05:52)
[2016-12-29] MEDS: ACETAMINOPHEN TAB 650MG DOSE (2X325MG) PO PRN (05:53)
[2016-12-29] MEDS: hydrOXYzine 25 MG TAB PO SCH ×3 (05:53→22:25)
[2016-12-29 06:00] VITALS: BP 124/64
[2016-12-29 07:20] LABS: MEAN CORPUSCULAR HGB CONC 32.9 g/dl (32.0-36.5); MEAN CORPUSCULAR VOLUME 91.3 fl (80.0-96.0); RED CELL DISTRIBUTION WIDTH 15.2 % (11.5-14.5)
[2016-12-29 07:40] LABS: ANION GAP 14 MEQ/L (8-16); BLOOD UREA NITROGEN 33 MG/DL (7-18); CARBON DIOXIDE LEVEL 22 MEQ/L (21-32); CHLORIDE LEVEL 117 MEQ/L (98-107); CREATININE FOR GFR 1.04 MG/DL (0.70-1.30); GLOMERULAR FILTRATION RATE > 60.0 (>35); GLUCOSE, FASTING 83 MG/DL (83-110); POTASSIUM SERUM 3.1 MEQ/L (3.5-5.1); SODIUM LEVEL 153 MEQ/L (136-145)
[2016-12-29] MEDS: FLEET ENEMA PR PRN ×4 (09:30→18:05)
[2016-12-29] MEDS: MIRALAX *UNIT DOSE* 17GM PACKET PO SCH (09:59)
[2016-12-29] MEDS: DULoxetine 30 MG CAP (CYMBALTA) PO SCH (10:00)
[2016-12-29] MEDS: MINOCYCLINE 50 MG CAP PO SCH ×2 (10:00→22:26)
[2016-12-29] MEDS: BACLOFEN 10 MG TAB PO SCH ×2 (10:00→22:25)
[2016-12-29] MEDS: MULTIVITAMINS/MINERALS THERAP 1 TAB PO SCH (10:00)
[2016-12-29] MEDS: APIXABAN 5 MG TAB (ELIQUIS) PO SCH ×2 (10:01→22:26)
[2016-12-29] MEDS: HYDROCORTISONE 100 MG/2 ML VIAL (J1720) IV SCH (10:01)
[2016-12-29] MEDS: SENOKOT S TAB PO SCH ×2 (10:01→22:26)
[2016-12-29] MEDS: CALCIUM/VITAMIN D 500 MG TAB PO SCH (10:01)
[2016-12-29] MEDS: PANTOPRAZOLE 40MG INJ (PROTONIX) (C9113) IV SCH (10:01)
--- NOTE | 2016-12-29 11:34 | IPNPDOC ---
Subjective Date Seen The patient was seen on 12/29/16. Subjective Chief Complaint/HPI The patient is a 86-year-old male admitted with a reason for visit of Pulmonary Embolism Fecal Impaction. Events since last encounter Unfortunately even the increased frequency of the enemas did not bring about great results for him. Mr. Cabrera is becoming increasingly uncomfortable from the abdominal pain but also from the procedures to try to relieve leave him. Dr. Smallwood is planning on a manual disimpaction today. I had further discussion today with his daughter/healthcare proxy and son-in-law. They are of the impression that if it comes down to a surgical procedure, he would not wish to have this done. When we asked the patient directly he contradicted that and said he would consider surgery if it meant it may relieve the abdominal pain he is currently experiencing. General: Denies: Normal Appetite Constitutional: Denies: Fever Pulmonary: Reports: Dyspnea (stable since admission) Cardiovascular: Denies: Chest Pain Gastrointestinal: Reports: Nausea, Abdominal Pain Objective Physical Examination General Exam: Positive: Alert (or easily arousable), Mild Distress Eye Exam: Positive: Conjunctiva & lids normal, Sclera icteric ENT Exam: Positive: Mucous membr. moist/pink Neck Exam: Positive: Supple, Negative: Lymphadenopathy Chest Exam: Positive: Clear to auscultation, Normal air movement, Negative: Rhonchi Heart Exam: Positive: Regular Rhythm, Normal S1, Normal S2 Abdomen Exam: Positive: BS Hypoactive, Other (tense and tender to light palpation. Tympany may be slightly decreased, but it is honestly hard to tell) Neuro Exam: Positive: Other (left sided deficits) Assessment /Plan Problems (1) Fecal impaction Status: Acute Response to Treatment: Worse Problem Specific Plan: Consult Specialist Problem Text: Manual disimpaction is planned today by general surgery. Hopefully this will bring resolution to his obstipation. Everyone is hopeful that we don't need surgical interventions, but based on my conversation with him today, when I do believe he was competent to make his own decisions, we would pursue surgical options if they were needed. (2) Pulmonary embolism Status: Acute Response to Treatment: Stable Problem Text: He remains off anticoagulation. Surgery is planning on doing procedure today that could cause significant bleeding. His V/Q returned showing a reasonable match, and therefore low probability for PE. If there were deficits they were on the ventilation side not the perfusion side. (3) Bullous pemphigoid Status: Chronic Response to Treatment: Stable Problem Text: His skin remains stable at this point in time. We'll continue to monitor. (4) H/O: CVA (cerebrovascular accident) Status: Chronic Response to Treatment: Stable Problem Text: With left-sided residual. Plan/VTE VTE Prophylaxis Ordered?: Yes (SCDs and TEDs) VTE Exclusion Pharmacological: Other (surgical procedure is being considered) VS, I&O, 24H, Fishbone Vital Signs/I&O Vital Signs Date Time Temp Pulse Resp B/P (MAP) Pulse Ox O2 Delivery O2 Flow Rate FiO2 12/29/16 06:00 97.7 89 18 124/64 (84) 95 Room Air I&O- Last 24 Hours up to 6 AM 12/29/16 06:00 Intake Total 1751 ml Output Total 200 ml Balance 1551 ml Laboratory Data 24H LABS Laboratory Tests 2 12/29/16 06:34: Anion Gap 14, Glomerular Filtration Rate > 60.0, Blood Urea Nitrogen 33H, Creatinine 1.04, Sodium Level 153H, Potassium Level 3.1L, Chloride Level 117H, Carbon Dioxide Level 22, Calcium Level 8.0L CBC/BMP Laboratory Tests 12/29/16 06:34 Red Blood Count 4.05 L, Mean Corpuscular Volume 91.3, Mean Corpuscular Hemoglobin 30.0, Mean Corpuscular Hemoglobin Concent 32.9, Red Cell Distribution Width 15.2 H, Calcium Level 8.0 L Nehemias Briones MD Dec 29, 2016 11:34 am
[2016-12-29] MEDS: KCL 20MEQ IN 0.45NS 1000ML 1,000 ML IV SCH ×2 (12:10→22:25)
[2016-12-29 14:00] VITALS: BP 132/55
[2016-12-29 17:44] LABS: MAGNESIUM LEVEL 2.2 MG/DL (1.8-2.4)
[2016-12-29 22:00] VITALS: BP 120/59
[2016-12-29] MEDS: POTASSIUM CHLORIDE 10% LIQ 20 MEQ/15 ML UDC PO SCH (22:25)
[2016-12-29] MEDS: ASPIRIN 81 MG ENTERIC TAB PO SCH (22:25)
[2016-12-29] MEDS: LEVOTHYROXINE 100MCG TABLET (0.1MG) PO SCH (22:25)
[2016-12-29] MEDS: TAMSULOSIN 0.4 MG CAP PO SCH (22:26)
[2016-12-29] MEDS: FAMOTIDINE 20 MG TAB PO SCH (22:26)
[2016-12-30] MEDS: KCL 20MEQ IN 0.45NS 1000ML 1,000 ML IV SCH ×3 (04:03→20:25)
[2016-12-30] MEDS: hydrOXYzine 25 MG TAB PO SCH ×3 (05:47→22:47)
[2016-12-30 06:00] VITALS: BP 132/65
[2016-12-30 07:37] LABS: BASO % 0.1 % (0.0-1.0); EOS % 0.6 % (0.0-3.0); LARGE UNSTAINED CELL % 0.7 % (0.0-4.0); LYMPH # 0.9 K/mm3 (1.5-4.5); LYMPH % 15.3 % (24.0-44.0); MEAN CORPUSCULAR HEMOGLOBIN 29.5 pg (27.0-33.0); MEAN CORPUSCULAR HGB CONC 32.2 g/dl (32.0-36.5); MEAN CORPUSCULAR VOLUME 91.6 fl (80.0-96.0); MONO # 0.2 K/mm3 (0.0-0.8); MONO % 4.1 % (0.0-5.0); NEUTROPHILS # 4.3 K/mm3 (1.8-7.7); NEUTROPHILS % 79.2 % (36.0-66.0); PLATELET COUNT, AUTOMATED 199 k/mm3 (150-450); RED CELL DISTRIBUTION WIDTH 15.4 % (11.5-14.5); WHITE BLOOD COUNT 5.4 K/mm3 (4.0-10.0)
[2016-12-30 07:59] LABS: ALBUMIN 1.9 GM/DL (3.2-5.2); ALBUMIN/GLOBULIN RATIO 0.59 (1.00-1.93); ALKALINE PHOSPHATASE 64 U/L (45-117); ALT/SGPT 17 U/L (12-78); ANION GAP 12 MEQ/L (8-16); AST/SGOT 15 U/L (15-37); BILIRUBIN,TOTAL 0.4 MG/DL (0.2-1.0); BLOOD UREA NITROGEN 22 MG/DL (7-18); CALCIUM LEVEL 7.5 MG/DL (8.8-10.2); CARBON DIOXIDE LEVEL 21 MEQ/L (21-32); CHLORIDE LEVEL 115 MEQ/L (98-107); CREATININE FOR GFR 0.83 MG/DL (0.70-1.30); GLOMERULAR FILTRATION RATE > 60.0 (>35); GLUCOSE, FASTING 87 MG/DL (83-110); POTASSIUM SERUM 2.6 MEQ/L (3.5-5.1); SODIUM LEVEL 148 MEQ/L (136-145); TOTAL PROTEIN 5.1 GM/DL (6.4-8.2)
[2016-12-30] MEDS ORDERED: POTASSIUM CHLORIDE 10% LIQ 20 MEQ/15 ML UDC PO ONE ×2 (08:30→13:00)
[2016-12-30 08:35] VITALS: BP 128/74
[2016-12-30] MEDS: MIRALAX *UNIT DOSE* 17GM PACKET PO SCH (09:00)
[2016-12-30] MEDS: SENOKOT S TAB PO SCH ×2 (09:00→20:26)
[2016-12-30] MEDS: MULTIVITAMINS/MINERALS THERAP 1 TAB PO SCH (10:19)
[2016-12-30] MEDS: BACLOFEN 10 MG TAB PO SCH ×2 (10:19→20:26)
[2016-12-30] MEDS: CALCIUM/VITAMIN D 500 MG TAB PO SCH (10:19)
[2016-12-30] MEDS: DULoxetine 30 MG CAP (CYMBALTA) PO SCH (10:20)
[2016-12-30] MEDS: MINOCYCLINE 50 MG CAP PO SCH ×2 (10:20→20:26)
[2016-12-30] MEDS: APIXABAN 5 MG TAB (ELIQUIS) PO SCH ×2 (10:20→20:26)
[2016-12-30] MEDS: oxyCODONE 5MG TAB PO PRN ×2 (10:20→20:27)
[2016-12-30] MEDS: HYDROCORTISONE 100 MG/2 ML VIAL (J1720) IV SCH (10:21)
[2016-12-30] MEDS: PROMETHAZINE INJ 25 MG/ML VIAL (J2550) IV PRN (10:21)
[2016-12-30] MEDS: PANTOPRAZOLE 40MG INJ (PROTONIX) (C9113) IV SCH (10:21)
--- NOTE | 2016-12-30 13:06 | REP ---
Clinical: Abdominal distension and constipation. Technique: Supine and cross-table lateral views of the chest abdomen and pelvis. Findings: Frontal view of the chest demonstrates nasogastric tube with side port at the gastroesophageal junction requiring advancement. Bowel gas pattern demonstrates distended small and large bowel along with considerable retained fecal material suggesting constipation and fecal impaction. No obvious free air to suggest perforation. Skeletal structures demonstrate age-related osteopenia and degenerative changes. Impression: 1. Nasogastric tube warrants advancement. 2. Significantly distended bowel with large amount of retained fecal material suggesting constipation and possible fecal impaction. Signed by Daron Aranda MD 12/30/2016 12:57 P
[2016-12-30 14:00] VITALS: BP 136/78
[2016-12-30] MEDS ORDERED: LACTULOSE 20 GM/30 ML SYRUP UD NG ONE (14:00)
[2016-12-30] MEDS: BISACODYL 10 MG SUPP PR PRN (15:51)
--- NOTE | 2016-12-30 17:13 | IPNPDOC ---
Subjective Date Seen The patient was seen on 12/30/16. Subjective Chief Complaint/HPI The patient is a 86-year-old male admitted with a reason for visit of Pulmonary Embolism Fecal Impaction. Events since last encounter He has been having some smaller more liquid BMs, but hasn't had many "good" results yet. Surgery is still recommending regular enemas. Constitutional: Denies: Fever Pulmonary: Denies: Cough Cardiovascular: Denies: Chest Pain, Palpitations Psych: Reports: Memory Issues Objective Physical Examination General Exam: Positive: Moderate Distress Eye Exam: Positive: Conjunctiva & lids normal, Negative: Sclera icteric ENT Exam: Positive: Mucous membr. moist/pink Neck Exam: Negative: Lymphadenopathy Chest Exam: Positive: Clear to auscultation, Normal air movement, Negative: Rales, Rhonchi Heart Exam: Positive: Regular Rhythm Abdomen Exam: Positive: BS Hypoactive, Other (Distended, tender. However the L side is firmer than the R side, which I think is a good sign that he is starting to get some clearance) Extremity Exam: Negative: Edema Skin Exam: Positive: Other skin issue (healing wounds multiple locations. no bullae seen today. 2+ edema bilaterally.) Neuro Exam: Positive: Other Psych Exam: Positive: Mood NL, Other (he is a little confused today, I suspect hospital related delerium) Assessment /Plan Problems (1) Fecal impaction Status: Acute Response to Treatment: Worse Problem Specific Plan: Consult Specialist Problem Text: NG tube still in place. He is starting to get a little softening of his abdomen. However, he hasn't had any real good BMs. Surgery is prescribing continued enemas, will defer to them and monitor. (2) Pulmonary embolism Status: Acute Response to Treatment: Stable Problem Text: He should be on Eliquis when the risk of surgery or procedures causing GI bleeding is past. Unfortunately, it has not yet. (3) Bullous pemphigoid Status: Chronic Response to Treatment: Stable Problem Text: His skin is improving slowly. Continue to monitor and we need to remember to change his steroid back to PO when he can take PO. (4) H/O: CVA (cerebrovascular accident) Status: Chronic Response to Treatment: Stable Problem Text: affected left side Plan/VTE VTE Prophylaxis Ordered?: Yes VS, I&O, 24H, Fishbone Vital Signs/I&O Vital Signs Date Time Temp Pulse Resp B/P (MAP) Pulse Ox O2 Delivery O2 Flow Rate FiO2 12/30/16 10:50 16 12/30/16 10:30 Room Air 12/30/16 08:35 99.7 84 128/74 (92) 93 I&O- Last 24 Hours up to 6 AM 12/30/16 06:00 Intake Total 1200 ml Balance 1200 ml Laboratory Data 24H LABS Laboratory Tests 2 12/30/16 07:26: White Blood Count 5.4, Red Blood Count 3.75L, Hemoglobin 11.1L, Hematocrit 34.3L , Mean Corpuscular Volume 91.6, Mean Corpuscular Hemoglobin 29.5, Mean Corpuscular Hemoglobin Concent 32.2, Red Cell Distribution Width 15.4H, Platelet Count 199, Neutrophils (%) (Auto) 79.2H, Lymphocytes (%) (Auto) 15.3L, Monocytes (%) (Auto) 4.1, Eosinophils (%) (Auto) 0.6, Basophils (%) (Auto) 0.1, Neutrophils # (Auto) 4.3, Lymphocytes # (Auto) 0.9L, Monocytes # (Auto) 0.2, Eosinophils # (Auto) 0.0, Basophils # (Auto) 0.0, Large Unclassified Cells % 0.7 , Large Unclassified Cells # 0.0, Anion Gap 12, Glomerular Filtration Rate > 60.0, Blood Urea Nitrogen 22H, Creatinine 0.83, Sodium Level 148H, Potassium Level 2.6*L, Chloride Level 115H, Carbon Dioxide Level 21, Calcium Level 7.5L, Aspartate Amino Transf (AST/SGOT) 15, Alanine Aminotransferase (ALT/SGPT) 17, Alkaline Phosphatase 64, Total Bilirubin 0.4, Total Protein 5.1L, Albumin 1.9L, Albumin/Globulin Ratio 0.59L CBC/BMP Laboratory Tests 12/30/16 07:26 Red Blood Count 3.75 L, Mean Corpuscular Volume 91.6, Mean Corpuscular Hemoglobin 29.5, Mean Corpuscular Hemoglobin Concent 32.2, Red Cell Distribution Width 15.4 H, Neutrophils (%) (Auto) 79.2 H, Lymphocytes (%) (Auto ) 15.3 L, Monocytes (%) (Auto) 4.1, Eosinophils (%) (Auto) 0.6, Basophils (%) ( Auto) 0.1, Neutrophils # (Auto) 4.3, Lymphocytes # (Auto) 0.9 L, Monocytes # ( Auto) 0.2, Eosinophils # (Auto) 0.0, Basophils # (Auto) 0.0, Calcium Level 7.5 L , Aspartate Amino Transf (AST/SGOT) 15, Alanine Aminotransferase (ALT/SGPT) 17, Alkaline Phosphatase 64, Total Bilirubin 0.4, Total Protein 5.1 L, Albumin 1.9 L Nehemias Briones MD Dec 30, 2016 17:13
[2016-12-30] MEDS ORDERED: KCL 10MEQ IN 100ML SWI (KRUN) 10 MEQ in APPROPRIATE DILUENT 1 EA IV SCH ×2 (17:15)
[2016-12-30] MEDS: FLEET ENEMA PR PRN (18:50)
[2016-12-30 19:25] LABS: POTASSIUM SERUM 3.2 MEQ/L (3.5-5.1)
[2016-12-30] MEDS: POTASSIUM CHLORIDE 10% LIQ 20 MEQ/15 ML UDC PO SCH (20:26)
[2016-12-30] MEDS: ASPIRIN 81 MG ENTERIC TAB PO SCH (20:26)
[2016-12-30] MEDS: FAMOTIDINE 20 MG TAB PO SCH (20:26)
[2016-12-30] MEDS: LEVOTHYROXINE 100MCG TABLET (0.1MG) PO SCH (20:26)
[2016-12-30] MEDS: TAMSULOSIN 0.4 MG CAP PO SCH (20:26)
[2016-12-30 22:00] VITALS: BP 148/80
[2016-12-31] MEDS: KCL 20MEQ IN 0.45NS 1000ML 1,000 ML IV SCH ×3 (04:14→20:07)
[2016-12-31] MEDS: ACETAMINOPHEN TAB 650MG DOSE (2X325MG) PO PRN ×3 (05:20→21:32)
[2016-12-31] MEDS: hydrOXYzine 25 MG TAB PO SCH ×3 (05:20→21:34)
[2016-12-31 06:00] VITALS: BP 148/74
[2016-12-31 06:33] LABS: MEAN CORPUSCULAR HEMOGLOBIN 29.6 pg (27.0-33.0); MEAN CORPUSCULAR HGB CONC 32.4 g/dl (32.0-36.5); MEAN CORPUSCULAR VOLUME 91.2 fl (80.0-96.0); RED CELL DISTRIBUTION WIDTH 15.4 % (11.5-14.5); WHITE BLOOD COUNT 6.3 K/mm3 (4.0-10.0)
[2016-12-31 06:39] LABS: ANION GAP 12 MEQ/L (8-16); BLOOD UREA NITROGEN 13 MG/DL (7-18); CALCIUM LEVEL 7.1 MG/DL (8.8-10.2); CARBON DIOXIDE LEVEL 20 MEQ/L (21-32); CHLORIDE LEVEL 111 MEQ/L (98-107); CREATININE FOR GFR 0.72 MG/DL (0.70-1.30); GLOMERULAR FILTRATION RATE > 60.0 (>35); GLUCOSE, FASTING 88 MG/DL (83-110); POTASSIUM SERUM 2.8 MEQ/L (3.5-5.1); SODIUM LEVEL 143 MEQ/L (136-145)
[2016-12-31] MEDS ORDERED: MAGNESIUM CITRATE 300 ML BTL PO ONE (08:30)
[2016-12-31] MEDS: PANTOPRAZOLE 40MG INJ (PROTONIX) (C9113) IV SCH (09:18)
[2016-12-31] MEDS: MIRALAX *UNIT DOSE* 17GM PACKET PO SCH (09:18)
[2016-12-31] MEDS: HYDROCORTISONE 100 MG/2 ML VIAL (J1720) IV SCH (09:18)
[2016-12-31] MEDS: BACLOFEN 10 MG TAB PO SCH ×2 (09:18→21:33)
[2016-12-31] MEDS: SENOKOT S TAB PO SCH ×2 (09:19→21:33)
[2016-12-31] MEDS: MINOCYCLINE 50 MG CAP PO SCH ×2 (09:19→21:34)
[2016-12-31] MEDS: APIXABAN 5 MG TAB (ELIQUIS) PO SCH ×2 (09:19→21:34)
[2016-12-31] MEDS: DULoxetine 30 MG CAP (CYMBALTA) PO SCH (09:19)
[2016-12-31] MEDS: CALCIUM/VITAMIN D 500 MG TAB PO SCH (09:19)
[2016-12-31] MEDS: MULTIVITAMINS/MINERALS THERAP 1 TAB PO SCH (09:19)
[2016-12-31] MEDS: KCL 10MEQ IN 100ML SWI (KRUN) 10 MEQ in APPROPRIATE DILUENT 1 EA IV SCH ×16 (09:48→21:31)
[2016-12-31 14:00] VITALS: BP 105/85
--- NOTE | 2016-12-31 15:30 | IPNPDOC ---
Subjective Date Seen The patient was seen on 12/31/16. Subjective Chief Complaint/HPI The patient is a 86-year-old male admitted with a reason for visit of Pulmonary Embolism Fecal Impaction. Events since last encounter Nursing reports that he had a reasonable sized BM yesterday evening. They feel that the frequent enemas and aggressive bowel care (including via NGT) may be starting to pay off. Mr. Cabrera reports that he feels sore in his abdomen, but he understands why this has to happen and is generally pleased that they are finally getting some results. Constitutional: Denies: Chills, Fever ENT: Denies: Dysphagia Skin: Denies: Jaundice Pulmonary: Denies: Dyspnea, Cough Cardiovascular: Denies: Chest Pain, Palpitations Genitourinary: Denies: Dysuria Objective Physical Examination General Exam: Positive: Alert, Cooperative, No Acute Distress Eye Exam: Positive: Conjunctiva & lids normal, Sclera icteric ENT Exam: Positive: Mucous membr. moist/pink Neck Exam: Positive: Supple, Negative: Lymphadenopathy Chest Exam: Positive: Clear to auscultation, Normal air movement, Negative: Rhonchi Heart Exam: Positive: Regular Rhythm, Normal S1, Normal S2 Abdomen Exam: Positive: BS Hypoactive, Other (his abdomen does seem to be noticably less hard or tense on the R side now. The L side is still reasonably firm on palpation as I think the stool is still working its way down that side. ) Extremity Exam: Positive: Edema (the left leg has 2 mm of pitting edema in the anterior tibial area) Neuro Exam: Positive: Other (chronic left sided deficits) Assessment /Plan Problems (1) Fecal impaction Status: Acute Response to Treatment: Worse Problem Specific Plan: Consult Specialist Problem Text: He is finally getting what I would call notable results. He hasn' t required surgery yet, which is a very good thing. I will continue to defer management of this issue to surgery, who are getting some results now. (2) Pulmonary embolism Status: Acute Response to Treatment: Stable Problem Text: He remains off anticoagulation. Surgery had not been needed thus far. We should discuss with them when they feel it would be safe to resume anticoagulation. (3) Bullous pemphigoid Status: Chronic Response to Treatment: Stable Problem Text: His skin remains stable at this point in time. We'll continue to monitor. (4) H/O: CVA (cerebrovascular accident) Status: Chronic Response to Treatment: Stable Problem Text: With left-sided residual. Plan/VTE VTE Prophylaxis Ordered?: Yes (SCDs and TEDs) VTE Exclusion Pharmacological: Other (surgical procedure is being considered) VS, I&O, 24H, Fishbone Vital Signs/I&O Vital Signs Date Time Temp Pulse Resp B/P (MAP) Pulse Ox O2 Delivery O2 Flow Rate FiO2 12/31/16 10:52 Room Air 12/31/16 06:00 98.2 93 18 148/74 (98) 96 I&O- Last 24 Hours up to 6 AM 12/31/16 05:59 Intake Total 1485 ml Output Total 475 ml Balance 1010 ml Laboratory Data 24H LABS Laboratory Tests 2 12/30/16 18:07: Sodium Level 144, Potassium Level 3.2#L, Chloride Level 113H, Carbon Dioxide Level 21, Anion Gap 10 12/31/16 06:14: Sodium Level 143, Potassium Level 2.8*L, Chloride Level 111H, Carbon Dioxide Level 20L, Anion Gap 12, Glomerular Filtration Rate > 60.0, Blood Urea Nitrogen 13, Creatinine 0.72, Calcium Level 7.1L CBC/BMP Laboratory Tests 12/30/16 18:07 Anion Gap 10 12/31/16 06:14 Red Blood Count 3.75 L, Mean Corpuscular Volume 91.2, Mean Corpuscular Hemoglobin 29.6, Mean Corpuscular Hemoglobin Concent 32.4, Red Cell Distribution Width 15.4 H, Calcium Level 7.1 L Nehemias Briones MD Dec 31, 2016 15:30
[2016-12-31] MEDS: BISACODYL 10 MG SUPP PR PRN (16:30)
[2016-12-31] MEDS: FLEET ENEMA PR PRN (16:30)
[2016-12-31] MEDS: oxyCODONE 5MG TAB PO PRN (17:19)
[2016-12-31] MEDS: POTASSIUM CHLORIDE 10% LIQ 20 MEQ/15 ML UDC PO SCH (21:31)
[2016-12-31] MEDS: ASPIRIN 81 MG ENTERIC TAB PO SCH (21:33)
[2016-12-31] MEDS: LEVOTHYROXINE 100MCG TABLET (0.1MG) PO SCH (21:33)
[2016-12-31] MEDS: TAMSULOSIN 0.4 MG CAP PO SCH (21:33)
[2016-12-31] MEDS: FAMOTIDINE 20 MG TAB PO SCH (21:34)
[2016-12-31 22:00] VITALS: BP 165/84
[2017-01-01] MEDS: KCL 20MEQ IN 0.45NS 1000ML 1,000 ML IV SCH ×3 (04:29→20:29)
[2017-01-01] MEDS: ONDANSETRON 4MG/2ML VIAL (J2405) IV PRN (04:29)
[2017-01-01] MEDS: MORPHINE 2 MG/ML 1ML SYRINGE IV PRN ×3 (04:30→12:13)
[2017-01-01 06:00] VITALS: BP 132/71
[2017-01-01 06:35] LABS: MEAN CORPUSCULAR HEMOGLOBIN 29.9 pg (27.0-33.0); MEAN CORPUSCULAR VOLUME 90.6 fl (80.0-96.0); RED CELL DISTRIBUTION WIDTH 15.4 % (11.5-14.5)
[2017-01-01] MEDS: hydrOXYzine 25 MG TAB PO SCH ×3 (06:45→20:32)
[2017-01-01 07:25] LABS: ALBUMIN 1.7 GM/DL (3.2-5.2); ALBUMIN/GLOBULIN RATIO 0.46 (1.00-1.93); ALKALINE PHOSPHATASE 71 U/L (45-117); ALT/SGPT 15 U/L (12-78); ANION GAP 11 MEQ/L (8-16); AST/SGOT 15 U/L (15-37); BILIRUBIN,TOTAL 0.4 MG/DL (0.2-1.0); BLOOD UREA NITROGEN 12 MG/DL (7-18); CALCIUM LEVEL 7.1 MG/DL (8.8-10.2); CARBON DIOXIDE LEVEL 19 MEQ/L (21-32); CHLORIDE LEVEL 106 MEQ/L (98-107); CREATININE FOR GFR 0.64 MG/DL (0.70-1.30); GLOMERULAR FILTRATION RATE > 60.0 (>35); GLUCOSE, FASTING 70 MG/DL (83-110); MAGNESIUM LEVEL 1.8 MG/DL (1.8-2.4); POTASSIUM SERUM 3.2 MEQ/L (3.5-5.1); SODIUM LEVEL 136 MEQ/L (136-145); TOTAL PROTEIN 5.4 GM/DL (6.4-8.2)
[2017-01-01] MEDS: SENOKOT S TAB PO SCH ×2 (09:00→20:31)
[2017-01-01] MEDS: MIRALAX *UNIT DOSE* 17GM PACKET PO SCH (09:00)
[2017-01-01] MEDS: MULTIVITAMINS/MINERALS THERAP 1 TAB PO SCH (09:00)
[2017-01-01] MEDS: CALCIUM/VITAMIN D 500 MG TAB PO SCH (09:00)
[2017-01-01] MEDS: BACLOFEN 10 MG TAB PO SCH ×2 (09:54→20:31)
[2017-01-01] MEDS: HYDROCORTISONE 100 MG/2 ML VIAL (J1720) IV SCH (09:55)
[2017-01-01] MEDS: PANTOPRAZOLE 40MG INJ (PROTONIX) (C9113) IV SCH (09:55)
[2017-01-01] MEDS: APIXABAN 5 MG TAB (ELIQUIS) PO SCH ×2 (09:55→20:31)
[2017-01-01] MEDS: MINOCYCLINE 50 MG CAP PO SCH ×2 (09:55→20:31)
[2017-01-01] MEDS: oxyCODONE 5MG TAB PO PRN (09:55)
[2017-01-01] MEDS: DULoxetine 30 MG CAP (CYMBALTA) PO SCH (09:56)
[2017-01-01 14:00] VITALS: BP 125/73
--- NOTE | 2017-01-01 17:15 | IPN ---
DATE: 01/01/2017 The patient was now admitted 5-6 days ago to deal with fecal impaction. He has been receiving laxatives orally as well as Fleet's enemas and Dulcolax suppositories. He has reportedly been having multiple watery brown bowel movements over the last several days. He reports no pain at rest but is somewhat full. Vital signs today show a temperature of 98.5, pulse of 106, respirations of 22, and blood pressure of 125/73. Intake and output shows 1400 of IV fluid today. He has no voids recorded, though he has been voiding, and he has one bowel movement recorded today at 0200, which was described as a liquid, brown, and moderate. PHYSICAL EXAMINATION: Reveals an elderly man lying quietly in bed. He appears to be dozing when I walked in. He has a nasogastric tube in place, which is connected to low intermittent suction but has no output. Skin is warm and dry. Sclerae are anicteric. The abdomen is mildly protuberant. It is mildly firm. He does have some bowel sounds present with some tinkly sounds. There is some tympany to percussion in the upper midabdomen. Palpation reveals a firmer area in the left lower quadrant just above the anterior-superior iliac spine. This is tender to palpation. The remainder of the abdomen shows some mild tenderness but not as much as in the left lower quadrant. LABORATORY FINDINGS: White count is 6.0 with a hemoglobin 12, hematocrit 37, and a platelet count of 191. Chemistry profile shows his potassium to be 3.2 with a BUN of 12, creatinine 0.64. Total protein is 5.4 with an albumin of 1.7. KUB was last done on December 30 and suggested some persistent stool in the left lower quadrant. I reviewed his CT scan from December 26, which showed a large amount of stool in the rectum but then a relatively empty sigmoid, but then in the descending and proximal sigmoid there was additional stool. IMPRESSION: Abdominal distension with possible persistent functional obstruction versus volvulus. PLAN: I will repeat a KUB today. It may be that the tender area in the left lower quadrant represents persistent hard stool in the descending colon or proximal sigmoid. I will order some lactulose to see if this will help move things but will stop his six times daily suppositories and Fleet's enemas, as I suspect that his distal sigmoid and rectum are fairly clear. Will reassess things after I see his new KUB. MCMILLAN
--- NOTE | 2017-01-01 17:59 | REP ---
Clinical: Marked abdominal distension. Technique: Multiple supine views of the abdomen and pelvis. Correlation: AXR dated 12/30/2016; CT dated 12/26/2016. Findings: Significantly distended loops of bowel are appreciated throughout the abdomen and pelvis along with a significant amount of retained fecal material primarily noted in the lower left abdomen to the level of the rectum. Findings most likely reflect changes related to severe fecal impaction although volvulus cannot definitively be excluded. Skeletal structures demonstrate stable osteopenia and degenerative changes. Vascular calcifications identified. Surgical clips noted in the pelvis. Impression: Findings described above likely represent mechanical obstruction due to severe fecal impaction. However volvulus cannot definitively be excluded. Signed by Daron Aranda MD 01/01/2017 05:50 P
--- NOTE | 2017-01-01 20:19 | IPN ---
DATE: 01/01/2017 Per nursing report, he did have some watery stool. He has some increased abdominal pain. He says he has been feeling better than yesterday. Last night, the nursing staff called. His analgesics were insufficient; we had to start his morphine. He is on Eliquis for presumed pulmonary embolism. Denies any shortness of breath or any bleeding. PHYSICAL EXAMINATION: 132/71, pulse 100, respiratory rate 20, 93% saturation, 97 degrees. GENERAL APPEARANCE: The patient has a gastric tube in place. LUNGS: Clear. HEART: Regular rate and rhythm. ABDOMEN: Soft, distended, mildly tender in both lower quadrants. First time I examined him, so I am not sure what the distension is compared to his baseline. He thinks it is about the same. LABORATORY: Potassium is 3.2. Complete blood count (CBC) stable. IMPRESSION: 1. 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 Will ask Dr. Gay to see him. Dr. Smallwood dropped by yesterday. Recommended continuing the nasogastric suctioning, enemas and by mouth laxatives. I do not think that the patient is a candidate for methylnaltrexone as he is currently obstructed, might be an outpatient option once this episode is passed. 2. Presumed pulmonary embolism. He is on Eliquis. This was questionable diagnosis based upon finding of presumed pulmonary emboli on the CT of the abdomen and pelvis. At that time of admission with a followup V/Q scan did not show pulmonary embolism.
[2017-01-01] MEDS: POTASSIUM CHLORIDE 10% LIQ 20 MEQ/15 ML UDC PO SCH (20:29)
[2017-01-01] MEDS: TAMSULOSIN 0.4 MG CAP PO SCH (20:31)
[2017-01-01] MEDS: FAMOTIDINE 20 MG TAB PO SCH (20:31)
[2017-01-01] MEDS: ASPIRIN 81 MG ENTERIC TAB PO SCH (20:31)
[2017-01-01] MEDS: LEVOTHYROXINE 100MCG TABLET (0.1MG) PO SCH (20:32)
[2017-01-01] MEDS: LACTULOSE 20 GM/30 ML SYRUP UD PO SCH (21:01)
[2017-01-01 22:00] VITALS: BP 141/74
[2017-01-02] MEDS: MORPHINE 2 MG/ML 1ML SYRINGE IV PRN (02:45)
[2017-01-02] MEDS: KCL 20MEQ IN 0.45NS 1000ML 1,000 ML IV SCH ×3 (04:33→22:00)
[2017-01-02 06:00] VITALS: BP 124/66
[2017-01-02] MEDS: hydrOXYzine 25 MG TAB PO SCH ×3 (06:15→22:00)
[2017-01-02 06:18] LABS: MEAN CORPUSCULAR HEMOGLOBIN 30.1 pg (27.0-33.0); MEAN CORPUSCULAR HGB CONC 33.5 g/dl (32.0-36.5); MEAN CORPUSCULAR VOLUME 89.6 fl (80.0-96.0); RED CELL DISTRIBUTION WIDTH 15.2 % (11.5-14.5); WHITE BLOOD COUNT 7.7 K/mm3 (4.0-10.0)
[2017-01-02] MEDS: oxyCODONE 5MG TAB PO PRN (06:18)
[2017-01-02 06:33] LABS: ANION GAP 12 MEQ/L (8-16); BLOOD UREA NITROGEN 11 MG/DL (7-18); CALCIUM LEVEL 7.9 MG/DL (8.8-10.2); CARBON DIOXIDE LEVEL 20 MEQ/L (21-32); CHLORIDE LEVEL 107 MEQ/L (98-107); CREATININE FOR GFR 0.68 MG/DL (0.70-1.30); GLOMERULAR FILTRATION RATE > 60.0 (>35); GLUCOSE, FASTING 91 MG/DL (83-110); POTASSIUM SERUM 3.4 MEQ/L (3.5-5.1); SODIUM LEVEL 139 MEQ/L (136-145)
--- NOTE | 2017-01-02 10:55 | IPN ---
DATE: 01/02/2017 Kenny says he feels better. His abdominal exam is no different. He has been having some loose watery stool but I do not think he is really moving his action very much. PHYSICAL EXAMINATION: Vital signs stable, 124/66. Lungs clear. Heart regular rate and rhythm. Decreased breath sounds at the bases. Abdomen distended, particularly tender in the left side. Palpable stool left abdomen. No peripheral edema. LABORATORIES: CBC unremarkable. Potassium is up 3.4. IMPRESSION: 1. Severe fecal impaction. He has been seen by surgery. His enemas and the suppositories have been discontinued. Not a candidate for methylnaltrexone as he is current evidence of obstruction on x-ray. I wonder if he might need an endoscopic disimpaction. I will defer to surgery on this. 2. Presumed pulmonary embolism, questionable diagnosis. He is on Eliquis. He is not actively bleeding.
[2017-01-02] MEDS: LACTULOSE 20 GM/30 ML SYRUP UD PO SCH ×2 (11:43→22:00)
[2017-01-02] MEDS: MIRALAX *UNIT DOSE* 17GM PACKET PO SCH (11:44)
[2017-01-02] MEDS: MINOCYCLINE 50 MG CAP PO SCH ×2 (11:44→21:00)
[2017-01-02] MEDS: POTASSIUM CHLORIDE 10% LIQ 20 MEQ/15 ML UDC PO SCH ×2 (11:44→22:00)
[2017-01-02] MEDS: PANTOPRAZOLE 40MG INJ (PROTONIX) (C9113) IV SCH (11:45)
[2017-01-02] MEDS: APIXABAN 5 MG TAB (ELIQUIS) PO SCH ×2 (11:46→21:00)
[2017-01-02] MEDS: CALCIUM/VITAMIN D 500 MG TAB PO SCH (11:46)
[2017-01-02] MEDS: MULTIVITAMINS/MINERALS THERAP 1 TAB PO SCH (11:46)
[2017-01-02] MEDS: BACLOFEN 10 MG TAB PO SCH ×2 (11:46→21:00)
[2017-01-02] MEDS: PROMETHAZINE INJ 25 MG/ML VIAL (J2550) IV PRN (11:46)
[2017-01-02] MEDS: HYDROCORTISONE 100 MG/2 ML VIAL (J1720) IV SCH (11:46)
[2017-01-02] MEDS: SENOKOT S TAB PO SCH ×2 (11:46→21:00)
[2017-01-02] MEDS: DULoxetine 30 MG CAP (CYMBALTA) PO SCH (11:48)
[2017-01-02 14:00] VITALS: BP 135/68
--- NOTE | 2017-01-02 20:32 | IPN ---
DATE: 01/02/2017 SUBJECTIVE: The patient is being followed in consultation for fecal impaction. Review of his x-rays yesterday suggest that his sigmoid colon is dilated but well cleaned out, and there is some solid stool remaining at the juncture of the descending and sigmoid colons in the left lower quadrant. He remains on multiple laxatives with an nasogastric (NG) tube in place. He has been afebrile over the last 24 hours. Most recent vital signs show a temperature of 97.6, pulse 101, respiratory rate of 10, blood pressure 135/68 and pulse oximetry of 95. Intake and output shows 1450 in yesterday and there is no recorded output noted. There are notes that he has had five voids and five bowel movements yesterday. He had a similar number of voids and bowel movements today. OBJECTIVE: Physical exam reveals an elderly man with a nasogastric tube in place. He is alert. Heart exam shows a regular rhythm and the lungs show bilateral breath sounds. The abdomen seems somewhat less distended. He does have a few bowel sounds present. On palpation of the abdomen, he complains of tenderness all over but is most tender in the left lower quadrant. His more diffuse tenderness is fairly mild and when distracted, he seems less uncomfortable. In the left lower quadrant he is resistant to letting me palpate this area. I do think his abdomen is a less distended and softer than it had been yesterday. LABORATORY DATA: This morning showed a white count of eight, hemoglobin 12, hematocrit 36 with a platelet count of 203. Chemistry profile showed potassium 3.4 with BUN of 11, creatinine 0.7 and a glucose of 91. IMPRESSION: Fecal impaction, now improved but with a suggestion of some solid stool remaining in the region of the junction of the descending and sigmoid colons in the left lower quadrant. He continues to put out what is described as liquid brown stool. His NG tube is not really draining anything of note, and I will try clamping this. His laxatives with lactulose, MiraLax and senna will be continued. If he tolerates clamping of the NG tube without any increase in his abdominal distension, then I would plan on removing this and starting him on a liquid diet. [facility]OSPITALEliana
[2017-01-02 20:59] VITALS: BP 134/74
[2017-01-02] MEDS: LEVOTHYROXINE 100MCG TABLET (0.1MG) PO SCH (21:00)
[2017-01-02] MEDS: TAMSULOSIN 0.4 MG CAP PO SCH (21:00)
[2017-01-02] MEDS: FAMOTIDINE 20 MG TAB PO SCH (21:00)
[2017-01-02] MEDS: ASPIRIN 81 MG ENTERIC TAB PO SCH (21:00)
[2017-01-03] MEDS: KCL 20MEQ IN 0.45NS 1000ML 1,000 ML IV SCH ×3 (04:00→20:00)
[2017-01-03] MEDS: hydrOXYzine 25 MG TAB PO SCH ×3 (05:00→21:27)
[2017-01-03] MEDS: METOCLOPRAMIDE 10 MG TAB PO SCH ×3 (06:00→17:27)
[2017-01-03 06:05] VITALS: BP 134/93
[2017-01-03 06:54] LABS: MEAN CORPUSCULAR HEMOGLOBIN 29.7 pg (27.0-33.0); MEAN CORPUSCULAR HGB CONC 32.6 g/dl (32.0-36.5); MEAN CORPUSCULAR VOLUME 91.2 fl (80.0-96.0); RED CELL DISTRIBUTION WIDTH 15.6 % (11.5-14.5); WHITE BLOOD COUNT 9.1 K/mm3 (4.0-10.0)
[2017-01-03 07:04] LABS: ANION GAP 13 MEQ/L (8-16); BLOOD UREA NITROGEN 8 MG/DL (7-18); CALCIUM LEVEL 7.8 MG/DL (8.8-10.2); CARBON DIOXIDE LEVEL 20 MEQ/L (21-32); CHLORIDE LEVEL 105 MEQ/L (98-107); CREATININE FOR GFR 0.69 MG/DL (0.70-1.30); GLOMERULAR FILTRATION RATE > 60.0 (>35); GLUCOSE, FASTING 95 MG/DL (83-110); POTASSIUM SERUM 2.9 MEQ/L (3.5-5.1); SODIUM LEVEL 138 MEQ/L (136-145)
[2017-01-03 08:00] VITALS: BP 139/73
[2017-01-03] MEDS: MINOCYCLINE 50 MG CAP PO SCH ×2 (09:00→21:00)
[2017-01-03] MEDS: DULoxetine 30 MG CAP (CYMBALTA) PO SCH (09:00)
[2017-01-03] MEDS: CALCIUM/VITAMIN D 500 MG TAB PO SCH (09:00)
[2017-01-03] MEDS: BACLOFEN 10 MG TAB PO SCH ×2 (09:00→21:26)
[2017-01-03] MEDS: APIXABAN 5 MG TAB (ELIQUIS) PO SCH ×2 (09:00→21:00)
[2017-01-03] MEDS: MIRALAX *UNIT DOSE* 17GM PACKET PO SCH (09:00)
[2017-01-03] MEDS: SENOKOT S TAB PO SCH ×2 (09:00→21:00)
[2017-01-03] MEDS: MULTIVITAMINS/MINERALS THERAP 1 TAB PO SCH (09:00)
[2017-01-03] MEDS: LACTULOSE 20 GM/30 ML SYRUP UD PO SCH ×2 (09:00→21:26)
[2017-01-03] MEDS: PROMETHAZINE INJ 25 MG/ML VIAL (J2550) IV PRN ×2 (09:12→16:17)
[2017-01-03] MEDS: ONDANSETRON 4MG/2ML VIAL (J2405) IV PRN (09:12)
[2017-01-03] MEDS: MORPHINE 2 MG/ML 1ML SYRINGE IV PRN ×3 (09:13→21:28)
[2017-01-03] MEDS: KCL 10MEQ IN 100ML SWI (KRUN) 10 MEQ in APPROPRIATE DILUENT 1 EA IV SCH ×4 (09:14→10:53)
[2017-01-03] MEDS ORDERED: GASTROGRAFIN SOLUTION 30ML PO ONE (09:15)
[2017-01-03] MEDS: HYDROCORTISONE 100 MG/2 ML VIAL (J1720) IV SCH (09:23)
[2017-01-03] MEDS: PANTOPRAZOLE 40MG INJ (PROTONIX) (C9113) IV SCH (09:23)
[2017-01-03] MEDS ORDERED: GASTROGRAFIN SOLUTION 30ML (Q9963) PO ONE (09:45)
[2017-01-03] MEDS: DICYCLOMINE 10 MG CAP PO SCH ×2 (11:23→17:26)
[2017-01-03] MEDS ORDERED: ISOVUE-370 76% 100ML VIAL (Q9967) As Ordered ONE (12:35)
[2017-01-03 13:11] LABS: ANION GAP 14 MEQ/L (8-16); BLOOD UREA NITROGEN 7 MG/DL (7-18); CALCIUM LEVEL 7.5 MG/DL (8.8-10.2); CARBON DIOXIDE LEVEL 19 MEQ/L (21-32); CHLORIDE LEVEL 104 MEQ/L (98-107); CREATININE FOR GFR 0.64 MG/DL (0.70-1.30); GLOMERULAR FILTRATION RATE > 60.0 (>35); GLUCOSE, FASTING 110 MG/DL (83-110); POTASSIUM SERUM 3.3 MEQ/L (3.5-5.1); SODIUM LEVEL 137 MEQ/L (136-145)
--- NOTE | 2017-01-03 13:36 | REP ---
Clinical: Abdominal distension. Technique: Axial contrast enhanced images from the lung bases to the pubic symphysis using 100 ml Isovue 370 intravenous contrast material with coronal and sagittal re-formations. Comparison: 12/26/2016. Findings: Small pleural effusions along with right lower lobe atelectasis appreciated. Atherosclerotic changes to the coronary arteries noted without cardiomegaly or pericardial effusion. Nasogastric tube extends into the stomach. Liver, spleen, pancreas, bilateral adrenal glands are normal. Kidneys demonstrate atrophic changes (L>R) as well as 2.3 cm left renal cyst and mild proximal hydroureteronephrosis which may be secondary to ureteral compression by distended colon (images 121 - 130). The enteric system demonstrates distension predominate involving the redundant sigmoid colon and associated fecal stasis and areas of fecal impaction distending course of the sigmoid to 7.6 cm diameter and rectosigmoid to 6.7 cm. The small bowel and more proximal colon are normal caliber and without obstruction or distension. No free air or free fluid is appreciated. Pelvis demonstrates normal bladder and evidence for prior prostatectomy. No significant adenopathy or obvious mass lesion appreciated. Atherosclerotic changes of the aorta and vasculature noted without aneurysm. Musculoskeletal structures demonstrate degenerative changes. Impression: 1. Distended appearance primarily involving the redundant rectosigmoid secondary to areas of fecal stasis and fecal impaction as described above. There is no evidence for small bowel obstruction, free fluid or free air. 2. The distended and redundant sigmoid colon extends towards the right chava pelvis and appears to cause mechanical obstruction to the mid-right ureter and subsequent mild proximal hydroureter nephrosis. 3. Small pleural effusions and right basilar atelectasis. 4. Further chronic changes as described above. Signed by Daron Aranda MD 01/03/2017 01:28 P
[2017-01-03 14:00] VITALS: BP 152/83
--- NOTE | 2017-01-03 15:23 | IPNPDOC ---
Subjective Date Seen The patient was seen on 01/03/17. Subjective Chief Complaint/HPI The patient is a 86-year-old male admitted with a reason for visit of Pulmonary Embolism Fecal Impaction. Events since last encounter CT scan completed today. Proves fecal impaction and fecal stasis. Having some BM activity and flatus. Constitutional: Denies: Chills, Fever, Night Sweats Gastrointestinal: Reports: Abdominal Pain, Constipation, Denies: Nausea, Vomiting, Diarrhea Psych: Reports: Memory Issues Objective Physical Examination General Exam: Positive: Alert (or easily arousable), Mild Distress Eye Exam: Positive: Conjunctiva & lids normal, Sclera icteric ENT Exam: Positive: Mucous membr. moist/pink Neck Exam: Positive: Supple, Negative: Lymphadenopathy Chest Exam: Positive: Clear to auscultation, Normal air movement, Negative: Rhonchi Heart Exam: Positive: Regular Rhythm, Normal S1, Normal S2 Abdomen Exam: Positive: BS Hypoactive, Other (tense and tender to light palpation. Tympany may be slightly decreased, but it is honestly hard to tell) Extremity Exam: Positive: Edema (the left leg has 2-3 mm of pitting edema in the anterior tibial area) Skin Exam: Positive: Other skin issue (healing wounds multiple locations. no bullae seen today. 2+ edema bilaterally.) Neuro Exam: Positive: Other (left sided deficits) Assessment /Plan Problems (1) Fecal impaction Status: Acute Response to Treatment: Worse Problem Specific Plan: Consult Specialist Problem Text: 01/03/17: Daughter declines surgical intervention due to mental status and age. Manual disimpaction is planned today by general surgery. Hopefully this will bring resolution to his obstipation. Everyone is hopeful that we don't need surgical interventions, but based on my conversation with him today, when I do believe he was competent to make his own decisions, we would pursue surgical options if they were needed. (2) Pulmonary embolism Status: Acute Response to Treatment: Stable Problem Text: 01/03/17: On Eliquis. VQ scan is low probability for PE. He remains off anticoagulation. Surgery is planning on doing procedure today that could cause significant bleeding. His V/Q returned showing a reasonable match, and therefore low probability for PE. If there were deficits they were on the ventilation side not the perfusion side. (3) Bullous pemphigoid Status: Chronic Response to Treatment: Stable Problem Text: His skin remains stable at this point in time. We'll continue to monitor. (4) H/O: CVA (cerebrovascular accident) Status: Chronic Response to Treatment: Stable Problem Text: With left-sided residual. Plan/VTE VTE Prophylaxis Ordered?: Yes (SCDs and TEDs) VTE Exclusion Pharmacological: Other (surgical procedure is being considered) VS, I&O, 24H, Fishbone Vital Signs/I&O Vital Signs Date Time Temp Pulse Resp B/P (MAP) Pulse Ox O2 Delivery O2 Flow Rate FiO2 01/03/17 14:00 152/83 (106) 01/03/17 14:00 98.7 01/03/17 14:00 99 94 Room Air 01/03/17 09:23 18 I&O- Last 24 Hours up to 6 AM 01/03/17 05:59 Intake Total 0 ml Output Total 300 ml Balance -300 ml Laboratory Data 24H LABS Laboratory Tests 2 01/03/17 06:36: Anion Gap 13, Glomerular Filtration Rate > 60.0, Blood Urea Nitrogen 8, Creatinine 0.69L, Sodium Level 138, Potassium Level 2.9*L, Chloride Level 105, Carbon Dioxide Level 20L, Calcium Level 7.8L 01/03/17 12:10: Anion Gap 14, Glomerular Filtration Rate > 60.0, Blood Urea Nitrogen 7, Creatinine 0.64L, Sodium Level 137, Potassium Level 3.3L, Chloride Level 104, Carbon Dioxide Level 19L, Calcium Level 7.5L CBC/BMP Laboratory Tests 01/03/17 06:36 Red Blood Count 3.89 L, Mean Corpuscular Volume 91.2, Mean Corpuscular Hemoglobin 29.7, Mean Corpuscular Hemoglobin Concent 32.6, Red Cell Distribution Width 15.6 H, Calcium Level 7.8 L 01/03/17 12:10 Calcium Level 7.5 L Carla Ann [employer] Jan 03, 2017 15:23
[2017-01-03] MEDS: FAMOTIDINE 20 MG TAB PO SCH (21:00)
[2017-01-03] MEDS: ASPIRIN 81 MG ENTERIC TAB PO SCH (21:00)
[2017-01-03] MEDS: LEVOTHYROXINE 100MCG TABLET (0.1MG) PO SCH (21:00)
[2017-01-03] MEDS: POTASSIUM CHLORIDE 10% LIQ 20 MEQ/15 ML UDC PO SCH (21:26)
[2017-01-03] MEDS: TAMSULOSIN 0.4 MG CAP PO SCH (21:26)
[2017-01-03 22:00] VITALS: BP 155/75
[2017-01-04] MEDS: MORPHINE 2 MG/ML 1ML SYRINGE IV PRN ×2 (01:14→05:13)
[2017-01-04] MEDS: KCL 20MEQ IN 0.45NS 1000ML 1,000 ML IV SCH ×3 (03:00→17:48)
[2017-01-04] MEDS: hydrOXYzine 25 MG TAB PO SCH ×3 (05:10→20:38)
[2017-01-04] MEDS: DICYCLOMINE 10 MG CAP PO SCH ×4 (05:10→17:48)
[2017-01-04] MEDS: METOCLOPRAMIDE 10 MG TAB PO SCH ×4 (05:10→17:48)
[2017-01-04 06:00] VITALS: BP 147/72
[2017-01-04 06:25] LABS: MEAN CORPUSCULAR HEMOGLOBIN 29.7 pg (27.0-33.0); MEAN CORPUSCULAR HGB CONC 32.7 g/dl (32.0-36.5); MEAN CORPUSCULAR VOLUME 90.8 fl (80.0-96.0); RED CELL DISTRIBUTION WIDTH 15.5 % (11.5-14.5); WHITE BLOOD COUNT 7.7 K/mm3 (4.0-10.0)
[2017-01-04 06:37] LABS: ANION GAP 11 MEQ/L (8-16); BLOOD UREA NITROGEN 6 MG/DL (7-18); CALCIUM LEVEL 7.5 MG/DL (8.8-10.2); CARBON DIOXIDE LEVEL 23 MEQ/L (21-32); CHLORIDE LEVEL 103 MEQ/L (98-107); CREATININE FOR GFR 0.74 MG/DL (0.70-1.30); GLOMERULAR FILTRATION RATE > 60.0 (>35); GLUCOSE, FASTING 80 MG/DL (83-110); POTASSIUM SERUM 2.7 MEQ/L (3.5-5.1); SODIUM LEVEL 137 MEQ/L (136-145)
[2017-01-04] MEDS ORDERED: POTASSIUM CHLORIDE 10% LIQ 20 MEQ/15 ML UDC PO ONE ×3 (08:30→15:00)
[2017-01-04] MEDS: LACTULOSE 20 GM/30 ML SYRUP UD PO SCH ×2 (08:54→20:37)
[2017-01-04] MEDS: MULTIVITAMINS/MINERALS THERAP 1 TAB PO SCH (08:55)
[2017-01-04] MEDS: SENOKOT S TAB PO SCH ×2 (08:55→20:38)
[2017-01-04] MEDS: HYDROCORTISONE 100 MG/2 ML VIAL (J1720) IV SCH (08:55)
[2017-01-04] MEDS: PANTOPRAZOLE 40MG INJ (PROTONIX) (C9113) IV SCH (08:55)
[2017-01-04] MEDS: BACLOFEN 10 MG TAB PO SCH ×2 (08:55→20:38)
[2017-01-04] MEDS: CALCIUM/VITAMIN D 500 MG TAB PO SCH (08:55)
[2017-01-04] MEDS: MINOCYCLINE 50 MG CAP PO SCH ×2 (08:55→20:38)
[2017-01-04] MEDS: DULoxetine 30 MG CAP (CYMBALTA) PO SCH (08:56)
[2017-01-04] MEDS: oxyCODONE 5MG TAB PO PRN ×2 (08:56→20:53)
[2017-01-04] MEDS: APIXABAN 5 MG TAB (ELIQUIS) PO SCH ×2 (08:56→20:38)
[2017-01-04] MEDS: MIRALAX *UNIT DOSE* 17GM PACKET PO SCH (08:58)
--- NOTE | 2017-01-04 12:28 | IPNPDOC ---
Subjective Date Seen The patient was seen on 01/04/17. Subjective Chief Complaint/HPI The patient is a 86-year-old male admitted with a reason for visit of Pulmonary Embolism Fecal Impaction. Events since last encounter Continues with poor progression in fecal impaction. CT scan completed. General: Reports: ROS Unobtainable Objective Physical Examination General Exam: Positive: Alert (or easily arousable), Mild Distress Eye Exam: Positive: Conjunctiva & lids normal, Sclera icteric ENT Exam: Positive: Mucous membr. moist/pink Neck Exam: Positive: Supple, Negative: Lymphadenopathy Chest Exam: Positive: Clear to auscultation, Normal air movement, Negative: Rhonchi Heart Exam: Positive: Regular Rhythm, Normal S1, Normal S2 Abdomen Exam: Positive: BS Hypoactive, Other (tense and tender to light palpation. Tympany may be slightly decreased, but it is honestly hard to tell) Extremity Exam: Positive: Edema (the left leg has 2-3 mm of pitting edema in the anterior tibial area) Skin Exam: Positive: Other skin issue (healing wounds multiple locations. no bullae seen today. 2+ edema bilaterally.) Neuro Exam: Positive: Other (left sided deficits) Assessment /Plan Problems (1) Fecal impaction Status: Acute Response to Treatment: Worse Problem Specific Plan: Consult Specialist Problem Text: 01/04/17: Clamp NGT. declines surgery. Per conversation with Dr. Smallwood, only option is colectomy which daughter advised previously, surgery is not an option. Will try conservative measures with bowel regimen. Distended appearance primarily involving the redundant rectosigmoid secondary to areas of fecal stasis and fecal impaction as described above. There is no evidence for small bowel obstruction, free fluid or free air. 2. The distended and redundant sigmoid colon extends towards the right chava pelvis and appears to cause mechanical obstruction to the mid-right ureter and subsequent mild proximal hydroureter nephrosis. 01/03/17: Daughter declines surgical intervention due to mental status and age. Manual disimpaction is planned today by general surgery. Hopefully this will bring resolution to his obstipation. Everyone is hopeful that we don't need surgical interventions, but based on my conversation with him today, when I do believe he was competent to make his own decisions, we would pursue surgical options if they were needed. (2) Pulmonary embolism Status: Acute Response to Treatment: Stable Problem Text: 01/03/17: On Eliquis. VQ scan is low probability for PE. He remains off anticoagulation. Surgery is planning on doing procedure today that could cause significant bleeding. His V/Q returned showing a reasonable match, and therefore low probability for PE. If there were deficits they were on the ventilation side not the perfusion side. (3) Bullous pemphigoid Status: Chronic Response to Treatment: Stable Problem Text: His skin remains stable at this point in time. We'll continue to monitor. (4) H/O: CVA (cerebrovascular accident) Status: Chronic Response to Treatment: Stable Problem Text: With left-sided residual. Plan/VTE VTE Prophylaxis Ordered?: Yes (SCDs and TEDs) VTE Exclusion Pharmacological: Other (surgical procedure is being considered) VS, I&O, 24H, Fishbone Vital Signs/I&O Vital Signs Date Time Temp Pulse Resp B/P (MAP) Pulse Ox O2 Delivery O2 Flow Rate FiO2 01/04/17 09:26 16 01/04/17 09:00 Room Air 01/04/17 06:00 97.9 92 147/72 (97) 93 I&O- Last 24 Hours up to 6 AM 01/04/17 06:00 Intake Total 60 ml Balance 60 ml Laboratory Data 24H LABS Laboratory Tests 2 01/04/17 05:48: Anion Gap 11, Glomerular Filtration Rate > 60.0, Blood Urea Nitrogen 6L, Creatinine 0.74, Sodium Level 137, Potassium Level 2.7*L, Chloride Level 103, Carbon Dioxide Level 23, Calcium Level 7.5L CBC/BMP Laboratory Tests 01/04/17 05:48 Red Blood Count 3.85 L, Mean Corpuscular Volume 90.8, Mean Corpuscular Hemoglobin 29.7, Mean Corpuscular Hemoglobin Concent 32.7, Red Cell Distribution Width 15.5 H, Calcium Level 7.5 L Carla Ann [employer] Jan 04, 2017 12:28
[2017-01-04 14:00] VITALS: BP 151/69
[2017-01-04] MEDS: TAMSULOSIN 0.4 MG CAP PO SCH (20:38)
[2017-01-04] MEDS: ASPIRIN 81 MG ENTERIC TAB PO SCH (20:38)
[2017-01-04] MEDS: LEVOTHYROXINE 100MCG TABLET (0.1MG) PO SCH (20:38)
[2017-01-04] MEDS: FAMOTIDINE 20 MG TAB PO SCH (20:38)
[2017-01-04] MEDS: POTASSIUM CHLORIDE 10% LIQ 20 MEQ/15 ML UDC PO SCH (20:38)
[2017-01-04 22:00] VITALS: BP 143/76
[2017-01-05] MEDS: KCL 20MEQ IN 0.45NS 1000ML 1,000 ML IV SCH ×2 (04:00→11:56)
[2017-01-05] MEDS: DICYCLOMINE 10 MG CAP PO SCH ×5 (05:40→23:03)
[2017-01-05] MEDS: hydrOXYzine 25 MG TAB PO SCH ×3 (05:40→22:58)
[2017-01-05] MEDS: METOCLOPRAMIDE 10 MG TAB PO SCH ×5 (05:40→23:03)
[2017-01-05] MEDS: oxyCODONE 5MG TAB PO PRN ×3 (05:43→20:08)
[2017-01-05 06:00] VITALS: BP 128/72
[2017-01-05 07:04] LABS: MEAN CORPUSCULAR HEMOGLOBIN 30.1 pg (27.0-33.0); MEAN CORPUSCULAR VOLUME 88.7 fl (80.0-96.0); RED CELL DISTRIBUTION WIDTH 15.4 % (11.5-14.5); WHITE BLOOD COUNT 7.6 K/mm3 (4.0-10.0)
[2017-01-05 07:31] LABS: ANION GAP 8 MEQ/L (8-16); BLOOD UREA NITROGEN 5 MG/DL (7-18); CALCIUM LEVEL 7.6 MG/DL (8.8-10.2); CARBON DIOXIDE LEVEL 25 MEQ/L (21-32); CHLORIDE LEVEL 108 MEQ/L (98-107); CREATININE FOR GFR 0.74 MG/DL (0.70-1.30); GLOMERULAR FILTRATION RATE > 60.0 (>35); GLUCOSE, FASTING 100 MG/DL (83-110); SODIUM LEVEL 141 MEQ/L (136-145)
[2017-01-05 07:38] LABS: POTASSIUM SERUM 2.7 MEQ/L (3.5-5.1)
[2017-01-05] MEDS: CALCIUM/VITAMIN D 500 MG TAB PO SCH (09:00)
[2017-01-05] MEDS: PANTOPRAZOLE 40MG INJ (PROTONIX) (C9113) IV SCH (09:00)
[2017-01-05] MEDS: DULoxetine 30 MG CAP (CYMBALTA) PO SCH (09:00)
[2017-01-05] MEDS: LACTULOSE 20 GM/30 ML SYRUP UD PO SCH ×2 (09:00→20:07)
[2017-01-05] MEDS: MINOCYCLINE 50 MG CAP PO SCH ×2 (09:00→20:07)
[2017-01-05] MEDS: MIRALAX *UNIT DOSE* 17GM PACKET PO SCH (09:00)
[2017-01-05] MEDS: HYDROCORTISONE 100 MG/2 ML VIAL (J1720) IV SCH (09:00)
[2017-01-05] MEDS: SENOKOT S TAB PO SCH ×2 (09:01→20:08)
[2017-01-05] MEDS: BACLOFEN 10 MG TAB PO SCH ×2 (09:01→20:07)
[2017-01-05] MEDS: MULTIVITAMINS/MINERALS THERAP 1 TAB PO SCH (09:01)
[2017-01-05] MEDS: APIXABAN 5 MG TAB (ELIQUIS) PO SCH ×2 (09:01→20:08)
[2017-01-05] MEDS ORDERED: KCL 20MEQ IN 0.45NS 1000ML 1,000 ML IV SCH (12:15)
--- NOTE | 2017-01-05 12:20 | IPNPDOC ---
Subjective Date Seen The patient was seen on 01/05/17. Subjective Chief Complaint/HPI The patient is a 86-year-old male admitted with a reason for visit of Pulmonary Embolism Fecal Impaction. Objective Physical Examination General Exam: Positive: Alert (or easily arousable), Mild Distress Eye Exam: Positive: Conjunctiva & lids normal, Sclera icteric ENT Exam: Positive: Mucous membr. moist/pink Neck Exam: Positive: Supple, Negative: Lymphadenopathy Chest Exam: Positive: Clear to auscultation, Normal air movement, Negative: Rhonchi Heart Exam: Positive: Regular Rhythm, Normal S1, Normal S2 Abdomen Exam: Positive: BS Hypoactive, Other (tense and tender to light palpation. Tympany may be slightly decreased, but it is honestly hard to tell) Extremity Exam: Positive: Edema (the left leg has 2-3 mm of pitting edema in the anterior tibial area) Skin Exam: Positive: Other skin issue (healing wounds multiple locations. no bullae seen today. 2+ edema bilaterally.) Neuro Exam: Positive: Other (left sided deficits) Assessment /Plan Problems (1) Fecal impaction Status: Acute Response to Treatment: Worse Problem Specific Plan: Consult Specialist Problem Text: 01/05/17: DC NGT today. Improvement in BMs. 01/04/17: Clamp NGT. declines surgery. Per conversation with Dr. Smallwood, only option is colectomy which daughter advised previously, surgery is not an option. Will try conservative measures with bowel regimen. Distended appearance primarily involving the redundant rectosigmoid secondary to areas of fecal stasis and fecal impaction as described above. There is no evidence for small bowel obstruction, free fluid or free air. 2. The distended and redundant sigmoid colon extends towards the right chava pelvis and appears to cause mechanical obstruction to the mid-right ureter and subsequent mild proximal hydroureter nephrosis. 01/03/17: Daughter declines surgical intervention due to mental status and age. Manual disimpaction is planned today by general surgery. Hopefully this will bring resolution to his obstipation. Everyone is hopeful that we don't need surgical interventions, but based on my conversation with him today, when I do believe he was competent to make his own decisions, we would pursue surgical options if they were needed. (2) Pulmonary embolism Status: Acute Response to Treatment: Stable Problem Text: 9/11/17: On Eliquis. VQ scan is low probability for PE. His V/Q returned showing a reasonable match, and therefore low probability for PE. If there were deficits they were on the ventilation side not the perfusion side. (3) Bullous pemphigoid Status: Chronic Response to Treatment: Stable Problem Text: His skin remains stable at this point in time. We'll continue to monitor. (4) H/O: CVA (cerebrovascular accident) Status: Chronic Response to Treatment: Stable Problem Text: With left-sided residual. (5) Hypokalemia Status: Acute Problem Text: Continue to replace potassium Plan/VTE VTE Prophylaxis Ordered?: Yes (SCDs and TEDs) VTE Exclusion Pharmacological: Other (surgical procedure is being considered) Plan Family Medicine Attending Note: I saw and examined Mr. Cabrera this morning; I discussed with SANFORD Adamson and I agree with her note as documented. Per Ms. Ann, his abdomen is softer today and patient states that he feels better with less abdominal pain. He is still mildly distended upon my exam this morning and has mild lower abdominal tenderness to palpation. NG tube was discontinued today. In regards to PE: it appears this was incidentally noted on his initial CT of A/ P but was not noted on repeat CT of A/P; V/Q scan was done and was low probability for PE. However, he continues to receive apixaban. We may want to consider a CTA of his chest for a definitive diagnosis, or we may want to consider stopping his apixaban. (KES) VS, I&O, 24H, Fishbone Vital Signs/I&O Vital Signs Date Time Temp Pulse Resp B/P (MAP) Pulse Ox O2 Delivery O2 Flow Rate FiO2 01/05/17 11:56 16 01/05/17 09:00 Room Air 01/05/17 06:00 97.9 85 128/72 (90) 93 I&O- Last 24 Hours up to 6 AM 01/05/17 05:59 Intake Total 1130 ml Output Total 1000 ml Balance 130 ml Laboratory Data 24H LABS Laboratory Tests 2 01/05/17 06:49: Anion Gap 8, Glomerular Filtration Rate > 60.0, Blood Urea Nitrogen 5L, Creatinine 0.74, Sodium Level 141, Potassium Level 2.7*L, Chloride Level 108H, Carbon Dioxide Level 25, Calcium Level 7.6L, Magnesium Level 2.0 CBC/BMP Laboratory Tests 01/04/17 12:27 01/05/17 06:49 Red Blood Count 3.73 L, Mean Corpuscular Volume 88.7, Mean Corpuscular Hemoglobin 30.1, Mean Corpuscular Hemoglobin Concent 34.0, Red Cell Distribution Width 15.4 H, Calcium Level 7.6 L Carla Ann Jan 05, 2017 12:20 TREVOR MORA MD Jan 05, 2017 13:28
[2017-01-05] MEDS: KCL 10MEQ IN 100ML SWI (KRUN) 10 MEQ in APPROPRIATE DILUENT 1 EA IV SCH ×6 (13:13→17:54)
[2017-01-05 14:00] VITALS: BP 138/71
[2017-01-05] MEDS ORDERED: ISOVUE-370 76% 100ML VIAL (Q9967) As Ordered ONE (14:14)
--- NOTE | 2017-01-05 15:13 | REP ---
Clinical: Chest pain and shortness of breath. Technique: Axial contrast enhanced images from the thoracic inlet to the upper abdomen using 100 ml Isovue 370 intravenous contrast material with multiplanar re-formations. Findings: Satisfactory enhancement of the pulmonary vasculature is achieved and no filling defects are identified to suggest pulmonary embolus. Atherosclerotic changes to the thoracic aorta and coronary arteries noted without aortic aneurysm or dissection, cardiomegaly or pericardial effusion. Lung thompson demonstrate chronic interstitial changes along with suggestions for mild pulmonary vascular congestion including mild cephalization small pleural effusions and basilar atelectasis. Limited evaluation of the upper abdomen demonstrates cholelithiasis. Normal bilateral adrenal glands. Impression: 1. No evidence for pulmonary embolus. 2. Mild pulmonary vascular congestion along with suspected interstitial edema, minimal basilar atelectasis and small pleural effusions. 3. Cholelithiasis. Signed by Daron Aranda MD 01/05/2017 03:04 P
[2017-01-05] MEDS: POTASSIUM CHLORIDE INJ 40 MEQ in NS 0.45% 1,000 ML IV SCH (15:25)
[2017-01-05 17:33] LABS: ANION GAP 8 MEQ/L (8-16); BLOOD UREA NITROGEN 5 MG/DL (7-18); CALCIUM LEVEL 7.6 MG/DL (8.8-10.2); CARBON DIOXIDE LEVEL 24 MEQ/L (21-32); CHLORIDE LEVEL 104 MEQ/L (98-107); CREATININE FOR GFR 0.76 MG/DL (0.70-1.30); GLOMERULAR FILTRATION RATE > 60.0 (>35); GLUCOSE, FASTING 131 MG/DL (83-110); POTASSIUM SERUM 3.9 MEQ/L (3.5-5.1); SODIUM LEVEL 136 MEQ/L (136-145)
[2017-01-05] MEDS: ONDANSETRON 4MG/2ML VIAL (J2405) IV PRN (20:03)
[2017-01-05] MEDS: TAMSULOSIN 0.4 MG CAP PO SCH (20:07)
[2017-01-05] MEDS: POTASSIUM CHLORIDE 10% LIQ 20 MEQ/15 ML UDC PO SCH (20:07)
[2017-01-05] MEDS: FAMOTIDINE 20 MG TAB PO SCH (20:08)
[2017-01-05] MEDS: LEVOTHYROXINE 100MCG TABLET (0.1MG) PO SCH (20:08)
[2017-01-05] MEDS: ASPIRIN 81 MG ENTERIC TAB PO SCH (20:08)
[2017-01-05 22:00] VITALS: BP 130/64
[2017-01-06] MEDS: POTASSIUM CHLORIDE INJ 40 MEQ in NS 0.45% 1,000 ML IV SCH ×2 (02:56→14:30)
[2017-01-06 06:00] VITALS: BP 146/67
[2017-01-06] MEDS: METOCLOPRAMIDE 10 MG TAB PO SCH ×3 (06:10→18:24)
[2017-01-06] MEDS: DICYCLOMINE 10 MG CAP PO SCH ×3 (06:10→18:24)
[2017-01-06] MEDS: hydrOXYzine 25 MG TAB PO SCH ×3 (06:10→22:00)
[2017-01-06 07:22] LABS: MEAN CORPUSCULAR HGB CONC 33.4 g/dl (32.0-36.5); MEAN CORPUSCULAR VOLUME 89.8 fl (80.0-96.0); RED CELL DISTRIBUTION WIDTH 15.6 % (11.5-14.5); WHITE BLOOD COUNT 7.4 K/mm3 (4.0-10.0)
[2017-01-06 07:45] LABS: ANION GAP 9 MEQ/L (8-16); BLOOD UREA NITROGEN 5 MG/DL (7-18); CALCIUM LEVEL 7.6 MG/DL (8.8-10.2); CARBON DIOXIDE LEVEL 25 MEQ/L (21-32); CHLORIDE LEVEL 106 MEQ/L (98-107); CREATININE FOR GFR 0.67 MG/DL (0.70-1.30); GLOMERULAR FILTRATION RATE > 60.0 (>35); GLUCOSE, FASTING 79 MG/DL (83-110); SODIUM LEVEL 140 MEQ/L (136-145)
[2017-01-06 07:48] LABS: POTASSIUM SERUM 2.8 MEQ/L (3.5-5.1)
[2017-01-06] MEDS: MIRALAX *UNIT DOSE* 17GM PACKET PO SCH (09:00)
[2017-01-06] MEDS: LACTULOSE 20 GM/30 ML SYRUP UD PO SCH ×4 (09:00→20:42)
[2017-01-06] MEDS: CALCIUM/VITAMIN D 500 MG TAB PO SCH (09:49)
[2017-01-06] MEDS: APIXABAN 5 MG TAB (ELIQUIS) PO SCH ×2 (09:49→20:42)
[2017-01-06] MEDS: SENOKOT S TAB PO SCH ×3 (09:49→20:43)
[2017-01-06] MEDS: PANTOPRAZOLE 40MG INJ (PROTONIX) (C9113) IV SCH (09:49)
[2017-01-06] MEDS: HYDROCORTISONE 100 MG/2 ML VIAL (J1720) IV SCH (09:49)
[2017-01-06] MEDS: MINOCYCLINE 50 MG CAP PO SCH ×3 (09:49→20:42)
[2017-01-06] MEDS: MULTIVITAMINS/MINERALS THERAP 1 TAB PO SCH (09:49)
[2017-01-06] MEDS: DULoxetine 30 MG CAP (CYMBALTA) PO SCH (09:49)
[2017-01-06] MEDS: BACLOFEN 10 MG TAB PO SCH ×3 (09:49→20:42)
[2017-01-06] MEDS: KCL 10MEQ IN 100ML SWI (KRUN) 10 MEQ in APPROPRIATE DILUENT 1 EA IV SCH ×6 (09:50→12:16)
--- NOTE | 2017-01-06 12:37 | IPNPDOC ---
Subjective Date Seen The patient was seen on 01/06/17. Subjective Chief Complaint/HPI The patient is a 86-year-old male admitted with a reason for visit of Pulmonary Embolism Fecal Impaction. Events since last encounter Multiple BMs with improvement of abdominal pain. Nursing staff having difficulty getting patient to take bowel meds in am, due to satiety. Constitutional: Denies: Chills, Fever, Night Sweats Gastrointestinal: Denies: Nausea, Vomiting, Abdominal Pain, Diarrhea, Constipation Objective Physical Examination General Exam: Positive: Alert, Cooperative, No Acute Distress Eye Exam: Positive: Conjunctiva & lids normal, Negative: Sclera icteric ENT Exam: Positive: Mucous membr. moist/pink Neck Exam: Negative: Lymphadenopathy Chest Exam: Positive: Clear to auscultation, Normal air movement, Negative: Rales, Rhonchi Heart Exam: Positive: Regular Rhythm Abdomen Exam: Positive: Normal bowel sounds, Soft, Tenderness (mildly tender) Extremity Exam: Negative: Edema Skin Exam: Positive: Other skin issue (healing wounds multiple locations. no bullae seen today. 2+ edema bilaterally.) Psych Exam: Positive: Mood NL, Other (he is a little confused today, I suspect hospital related delerium) Assessment /Plan Problems (1) Hypokalemia Status: Acute Problem Text: 2 diarrhea from bowel regimen 01/06 no BM, K 2.8 therefore s/p 3 10 K runs and continues K 40/40/20-will recheck c Mg 2H p last dose 01/05 4 BMs-all diarrhea (3 small, 1 moderate) HD K 20 QD (2) Fecal impaction Status: Acute Response to Treatment: Worse Problem Specific Plan: Consult Specialist Problem Text: 01/06/17: NGT DCd yesterday. Tolerating po. Change times of lactulose and miralax to help with compliance. Anticipate DC back to [facility] in am. NG tube still in place. He is starting to get a little softening of his abdomen. However, he hasn't had any real good BMs. Surgery is prescribing continued enemas, will defer to them and monitor. (3) Pulmonary embolism Status: Acute Response to Treatment: Stable Problem Text: 12/26 CT AP reviewed c Dr. Laurent who affirms LL PE; therefore, plan at least 3M DOAC 01/05 CTA chest - PE 12/28 VQ scan low prob 12/26 CT AP: Incidental left lower lobe segmental branches pulmonary emboli 12/26 - LLE DVT US 01/05 D-dimer 2543 (4) Bullous pemphigoid Status: Chronic Response to Treatment: Stable Problem Text: His skin is improving slowly. Continue to monitor and we need to remember to change his steroid back to PO when he can take PO. (5) H/O: CVA (cerebrovascular accident) Status: Chronic Response to Treatment: Stable Problem Text: affected left side Plan/VTE VTE Prophylaxis Ordered?: Yes (SCDs and TEDs) VTE Exclusion Pharmacological: Other (surgical procedure is being considered) VS, I&O, 24H, Fishbone Vital Signs/I&O Vital Signs Date Time Temp Pulse Resp B/P (MAP) Pulse Ox O2 Delivery O2 Flow Rate FiO2 01/06/17 06:00 97.8 77 16 146/67 (93) 92 Room Air I&O- Last 24 Hours up to 6 AM 01/06/17 06:00 Intake Total 120 ml Balance 120 ml Laboratory Data 24H LABS Laboratory Tests 2 01/05/17 14:10: D-Dimer, Quantitative 2543.0H 01/05/17 17:03: Anion Gap 8, Glomerular Filtration Rate > 60.0, Blood Urea Nitrogen 5L, Creatinine 0.76, Sodium Level 136, Potassium Level 3.9#, Chloride Level 104, Carbon Dioxide Level 24, Calcium Level 7.6L 01/06/17 07:00: Anion Gap 9, Glomerular Filtration Rate > 60.0, Blood Urea Nitrogen 5L, Creatinine 0.67L, Sodium Level 140, Potassium Level 2.8#*L, Chloride Level 106, Carbon Dioxide Level 25, Calcium Level 7.6L CBC/BMP Laboratory Tests 01/05/17 17:03 Calcium Level 7.6 L 01/06/17 07:00 Calcium Level 7.6 L, Red Blood Count 3.82 L, Mean Corpuscular Volume 89.8, Mean Corpuscular Hemoglobin 30.0, Mean Corpuscular Hemoglobin Concent 33.4, Red Cell Distribution Width 15.6 H Carla Ann Jan 06, 2017 12:37 Jermain Jordan M.D. Jan 06, 2017 17:46
[2017-01-06 14:00] VITALS: BP 125/65
[2017-01-06] MEDS: POTASSIUM CHL PWD 20 MEQ PACKET PO SCH ×3 (14:03→20:42)
[2017-01-06] MEDS: POTASSIUM CHLORIDE 10% LIQ 20 MEQ/15 ML UDC PO SCH ×2 (19:46→20:43)
[2017-01-06] MEDS: ONDANSETRON 4MG/2ML VIAL (J2405) IV PRN (19:47)
[2017-01-06] MEDS: TAMSULOSIN 0.4 MG CAP PO SCH ×2 (19:48→20:42)
[2017-01-06] MEDS: LEVOTHYROXINE 100MCG TABLET (0.1MG) PO SCH ×2 (19:49→20:43)
[2017-01-06] MEDS: ASPIRIN 81 MG ENTERIC TAB PO SCH ×2 (19:49→20:42)
[2017-01-06] MEDS: FAMOTIDINE 20 MG TAB PO SCH ×2 (19:49→20:42)
[2017-01-06] MEDS: ACETAMINOPHEN TAB 650MG DOSE (2X325MG) PO PRN (19:49)
[2017-01-06 21:26] LABS: ALBUMIN 1.7 GM/DL (3.2-5.2); ANION GAP 5 MEQ/L (8-16); BLOOD UREA NITROGEN 5 MG/DL (7-18); CALCIUM LEVEL 7.6 MG/DL (8.8-10.2); CARBON DIOXIDE LEVEL 30 MEQ/L (21-32); CHLORIDE LEVEL 103 MEQ/L (98-107); CREATININE FOR GFR 0.88 MG/DL (0.70-1.30); GLOMERULAR FILTRATION RATE > 60.0 (>35); GLUCOSE, FASTING 109 MG/DL (83-110); PHOSPHORUS LEVEL 1.6 MG/DL (2.5-4.9); POTASSIUM SERUM 3.5 MEQ/L (3.5-5.1); SODIUM LEVEL 138 MEQ/L (136-145)
[2017-01-06 22:00] VITALS: BP 127/64
[2017-01-07] MEDS: MORPHINE 2 MG/ML 1ML SYRINGE IV PRN ×3 (00:30→11:17)
[2017-01-07] MEDS: POTASSIUM CHLORIDE INJ 40 MEQ in NS 0.45% 1,000 ML IV SCH (03:30)
[2017-01-07 06:00] VITALS: BP 166/74
[2017-01-07] MEDS: METOCLOPRAMIDE 10 MG TAB PO SCH ×3 (06:24→11:17)
[2017-01-07] MEDS: DICYCLOMINE 10 MG CAP PO SCH ×3 (06:24→11:18)
[2017-01-07] MEDS: hydrOXYzine 25 MG TAB PO SCH (06:24)
[2017-01-07 07:54] LABS: MEAN CORPUSCULAR HEMOGLOBIN 29.2 pg (27.0-33.0); MEAN CORPUSCULAR HGB CONC 32.5 g/dl (32.0-36.5); MEAN CORPUSCULAR VOLUME 89.9 fl (80.0-96.0); RED CELL DISTRIBUTION WIDTH 15.6 % (11.5-14.5); WHITE BLOOD COUNT 6.6 K/mm3 (4.0-10.0)
[2017-01-07 08:22] LABS: ANION GAP 9 MEQ/L (8-16); BLOOD UREA NITROGEN 5 MG/DL (7-18); CALCIUM LEVEL 7.5 MG/DL (8.8-10.2); CARBON DIOXIDE LEVEL 28 MEQ/L (21-32); CHLORIDE LEVEL 105 MEQ/L (98-107); CREATININE FOR GFR 0.81 MG/DL (0.70-1.30); GLOMERULAR FILTRATION RATE > 60.0 (>35); GLUCOSE, FASTING 81 MG/DL (83-110); SODIUM LEVEL 142 MEQ/L (136-145)
[2017-01-07] MEDS: MULTIVITAMINS/MINERALS THERAP 1 TAB PO SCH (09:00)
[2017-01-07] MEDS: DULoxetine 30 MG CAP (CYMBALTA) PO SCH (09:00)
[2017-01-07] MEDS: CALCIUM/VITAMIN D 500 MG TAB PO SCH (09:00)
[2017-01-07] MEDS: MIRALAX *UNIT DOSE* 17GM PACKET PO SCH (09:00)
[2017-01-07] MEDS: APIXABAN 5 MG TAB (ELIQUIS) PO SCH (09:00)
[2017-01-07] MEDS: LACTULOSE 20 GM/30 ML SYRUP UD PO SCH (09:00)
[2017-01-07] MEDS: MINOCYCLINE 50 MG CAP PO SCH (09:00)
[2017-01-07] MEDS: POTASSIUM CHL PWD 20 MEQ PACKET PO SCH (09:00)
[2017-01-07] MEDS: HYDROCORTISONE 100 MG/2 ML VIAL (J1720) IV SCH (09:00)
[2017-01-07] MEDS: PANTOPRAZOLE 40MG INJ (PROTONIX) (C9113) IV SCH (09:00)
[2017-01-07] MEDS: SENOKOT S TAB PO SCH (09:00)
[2017-01-07] MEDS: BACLOFEN 10 MG TAB PO SCH (09:00)
[2017-01-07] MEDS ORDERED: PEG1POW PO (09:40)
[2017-01-07] MEDS ORDERED: POTA20PW PO ×2 (09:40→09:47)
[2017-01-07] MEDS ORDERED: DICY1CAP8 PO (09:40)
[2017-01-07] MEDS ORDERED: LACT10SO3 PO (09:40)
[2017-01-07] MEDS ORDERED: POTASSIUM CHLORIDE 10 MEQ SR TABLET PO ONE (09:45)
--- NOTE | 2017-01-07 11:15 | DSES ---
DATE OF ADMISSION: 12/26/2016 DATE OF DISCHARGE: 01/07/2017 ATTENDING PHYSICIAN: Dr. Jermain Jordan. PRIMARY CARE PHYSICIAN: Dr. Vineet Hagen. This is an 86-year-old gentleman who is a resident of [facility] who presented to the emergency room after 3 days of increasing abdominal distention with abdominal pain. Work up in the ED proved moderate fecal impaction of the rectosigmoid colon, moderate gaseous distention of the colon with large amount of fecal residue, extrinsic compression of the distal right ureter from a distended sigmoid containing massive amount of fecal residue. Patient was subsequently admitted to the Family Medicine service. He is status post surgical consult with Dr. Thomas Smallwood. Nasogastric (NG) tube for compression was obtained with some mild improvement in patient's abdominal distention. Patient was aggressively treated with stool softeners. Repeat CT of the pelvis obtained on 01/03/2017 which proved distended appearance of the abdomen primarily involving the redundant rectosigmoid secondary to areas of fecal stasis and fecal impaction. This is reviewed with patient's daughter and recommendations for treatment include colectomy to improve patient's symptoms, colonoscopy treatment would not be beneficial at this point. Daughter opted not to proceed with surgical correction secondary to patient's dementia as well as his age. We have continued to treat patient with lactulose 30 mL twice daily, MiraLax daily, Colace 100 mg by mouth twice daily, senna two tablets at night with multiple bowel movements. Patient has had recurrent issues with hypokalemia secondary to large amounts of equal volume. He has subsequently been replaced throughout the hospitalization with both oral and IV potassium. Of note, patient was positive for a pulmonary embolism on a CT abdomen and pelvis on 12/26, subsequently received both a V/Q scan as well as a CT angio of the chest which proved negative for pulmonary embolism post treatment from the CT abdomen and pelvis. Patient has been receiving apixaban 5 mg by mouth twice daily. He will need to continue with the apixaban for 3 months for pulmonary embolus treatment. PHYSICAL EXAMINATION TODAY: Vital signs are stable. He is afebrile. HEENT: Neck is supple without lymphadenopathy or jugular venous distention (JVD). Abdomen is softer however remains moderately distended. Bilateral lower extremities are without any edema. Patient is minimally cooperative with any examinations. ASSESSMENT: 1. Fecal impaction. 2. Pulmonary embolism. 3. History of bullous pemphigoid. 4. History of cerebrovascular accident (CVA) with subsequent dementia. Patient will be discharged back to [facility]. Diet is as tolerated. Activity is as tolerated. He will need close monitoring of his potassium. His most recent level is 3.0 after receiving a total of 120 mEq of replacement yesterday. He will receive another 120 mEq by mouth today. MEDICATIONS ARE FOLLOWS: - dicyclomine 10 mg by mouth every 6 hours - lactulose 30 mL by mouth twice daily - MiraLax one packet daily - potassium chloride 40 mEq by mouth three times daily - Tylenol 650 mg per rectum every 4 hours as needed for pain or fever - Tylenol 650 mg by mouth every 4 hours as needed for pain or fever - DuoNeb every 2 hours as needed for shortness of breath or wheezing - aspirin 81 mg by mouth daily at bedtime - baclofen 10 mg by mouth twice daily - bisacodyl 5 mg by mouth daily at bedtime - calcium with vitamin D one tablet daily - Refresh tears one drop both eyes four times daily - Zyrtec 10 mg by mouth daily at bedtime - Colace with senna two tablets by mouth twice daily - duloxetine 60 mg by mouth daily - enema daily as needed constipation - famotidine 20 mg by mouth daily at bedtime - hydroxyzine 25 mg by mouth every 8 hours - levothyroxine 100 mcg by mouth daily at bedtime - megestrol acetate 20 mg by mouth twice daily - milk of magnesia 30 mL by mouth daily as needed constipation - minocycline 100 mg by mouth twice daily - mirtazapine 50 mg by mouth daily at bedtime - multivitamin one tablet by mouth daily - oxycodone 10 mg twice daily - prednisone 15 mg by mouth every 2 days - prednisone 20 mg by mouth every 2 days - tamsulosin 0.4 mg by mouth daily at bedtime Daughter and patient should followup with primary care physician in long term to review opioid use contributing to constipation obviously and any other medications that my be adjusted secondary to patient's severe constipation and fecal impaction. Patient is discharged in stable and satisfactory condition. [facility]
[2017-01-07] MEDS: KCL 10MEQ IN 100ML SWI (KRUN) 10 MEQ in APPROPRIATE DILUENT 1 EA IV SCH ×4 (11:17→12:24)
== END 2017-01-07 13:40 | DRG 388 ==
LOC: M ED 03:17 → M ED INP 10:09 → M MS5PR 13:15
PROVIDERS: ADMIT Family Medicine; ATTEND Family Medicine
DX: K56.41 Fecal impaction (principal); I26.99 Other pulmonary embolism without acute cor pulmonale; L12.0 Bullous pemphigoid; I69.354 Hemiplegia and hemiparesis following cerebral infarction affecting left non-dominant side; L30.3 Infective dermatitis; E87.6 Hypokalemia; I69.320 Aphasia following cerebral infarction; J44.9 Chronic obstructive pulmonary disease, unspecified; I10 Essential (primary) hypertension; Z66 Do not resuscitate; E78.5 Hyperlipidemia, unspecified; F03.90 Unspecified dementia, unspecified severity, without behavioral disturbance, psychotic disturbance, mood disturbance, and anxiety; E03.9 Hypothyroidism, unspecified; K21.9 Gastro-esophageal reflux disease without esophagitis; Z85.46 Personal history of malignant neoplasm of prostate; Z88.0 Allergy status to penicillin; Z88.2 Allergy status to sulfonamides; Z88.8 Allergy status to other drugs, medicaments and biological substances; Z79.891 Long term (current) use of opiate analgesic; Z79.82 Long term (current) use of aspirin; Z79.899 Other long term (current) drug therapy; Z79.52 Long term (current) use of systemic steroids

== ENCOUNTER → 2017-01-10 | Outpatient (REF) | payer MEDICARE, MEDICAID ==
[~2017-01-10] MED LIST changes: +ASPI81TAEC PO; +CALC500T19 PO; +DICY1CAP8 PO; +DULO1CAP3 PO; +ENEM1ENE4 PR; +FEVE650S3 PR; +HYDR-3363 PO; +IPRASOL4 INH; +KLOR1CAP2 PO; +LACT10SO3 PO; +LEVO100T54 PO; +MINO100T PO; +OXYC-517 PO; +PEG1POW PO; +POTA20PW PO; +PRED20TA PO; +PRED5TA PO; +REFR0.5D8 OU
[2017-01-10 10:32] LABS: ANION GAP 10 MEQ/L (8-16); BLOOD UREA NITROGEN 13 MG/DL (7-18); CALCIUM LEVEL 7.3 MG/DL (8.8-10.2); CARBON DIOXIDE LEVEL 29 MEQ/L (21-32); CHLORIDE LEVEL 101 MEQ/L (98-107); CREATININE FOR GFR 0.94 MG/DL (0.70-1.30); GLOMERULAR FILTRATION RATE > 60.0 (>35); GLUCOSE, FASTING 93 MG/DL (83-110); SODIUM LEVEL 140 MEQ/L (136-145)
[2017-01-10 11:03] LABS: POTASSIUM SERUM 2.4 MEQ/L (3.5-5.1)
== END ==
LOC: SKLAB4 09:56
PROVIDERS: ATTEND Family Medicine
DX: E87.6 Hypokalemia (principal)